=== PATIENT | female | born 1960 | race Caucasian/White ===

== ENCOUNTER → 2018-11-02 11:25 | Outpatient (CLI) | payer OTHER, SELFPAY ==
--- NOTE | 2018-11-02 09:15 | DI.MG.S_ITS ---
Patient Name: ALISA SCHERER date: 1960 Sex: F Attending Physician: Kaycee Indications: Date: 11/02/2018 11:43 At the request of: ESTHER REYES Procedure: MM screening mammo BI BILATERAL DIGITAL SCREENING MAMMOGRAM 3D/2D WITH CAD: 11/02/2018 CLINICAL: Routine screening. Family history of breast cancer. Comparison is made to exams dated: 09/10/2017 mammogram, 06/06/2016 mammogram, and 06/05/2015 mammogram - [facility]. The tissue of both breasts is extremely dense, which lowers the sensitivity of mammography. Current study was also evaluated with a Computer Aided Detection (CAD) system. No significant masses, calcifications, or other findings are seen in either breast. There has been no significant interval change. IMPRESSION: NEGATIVE There is no mammographic evidence of malignancy. A 1 year screening mammogram is recommended. This exam was interpreted at Station ID: [id number]. NOTE: For mammograms, a report in lay terms will be sent to the patient. Approximately 15% of breast malignancies will not be visualized mammographically. In the management of a palpable breast mass, a negative mammogram must not discourage biopsy of a clinically suspicious lesion. Electronically Signed By: Kong caceres/marc:11/02/2018 22:31:34 letter sent: Normal Exam ACR BI-RADS Category 1: Negative 3341F
== END ==
PROVIDERS: Family Provider Internal Medicine; PCP Internal Medicine; Visit Provider Specialist
DX: Z12.31 Encounter for screening mammogram for malignant neoplasm of breast (principal); Z80.3 Family history of malignant neoplasm of breast
CPT/HCPCS: 77063; 77067

== ENCOUNTER → 2019-05-06 16:30 | Outpatient (CLI) | payer OTHER, SELFPAY ==
[2019-05-06 17:14] LABS: Add Manual Diff / Slide Review NO; Basophils Absolute Auto 100 /uL (0-100); Basophils Percent Auto 1.3 % (0-2); Eosinophils Absolute Auto 100 /uL (0-450); Eosinophils Percent Auto 1.8 % (2-4); Hematocrit 39.7 % (36-46); Hemoglobin 13.5 g/dL (12.0-16.0); Lymphocytes Absolute Auto 1900 /uL (1100-4500); Lymphocytes Percent Auto 38.6 % (25-40); Mean Corpuscular Hemoglobin 30.3 PG (26-34); Mean Corpuscular Volume 89.3 fL (80-100); Monocytes Absolute Auto 500 /uL (0-900); Monocytes Percent Auto 9.3 % (3-14); Neutrophils Absolute Auto 2400 /uL (1500-7000); Platelet Count 272 X10^3/uL (150-400); Red Blood Cell Count 4.45 X10^6/uL (4.0-5.2); White Blood Cell Count 4.9 X10^3/uL (4.5-11.0)
[2019-05-06 18:22] LABS: Alanine Aminotransferase 29 IU/L (9-52); Albumin 4.4 g/dL (3.5-5.0); Albumin Globulin Ratio 1.7 (1.0-2.8); Alkaline Phosphatase 44 U/L (38-126); Aspartate Aminotransferase 34 IU/L (14-36); BUN Creatinine Ratio 22.5 (6-22); Bilirubin Total 0.5 mg/dL (0.2-1.3); Blood Urea Nitrogen 18 mg/dL (7-17); Calcium 10.4 mg/dL (8.4-10.2); Carbon Dioxide 29 mmol/L (22-32); Chloride 104 mmol/L (98-107); Estimated Glomerular Filt Rate > 60.0 mL/min (>60); Globulin 2.6 g/dL (1.7-4.1); Glucose 114 mg/dL (70-100); HEMOLYSIS < 15 (0-50); Potassium 4.6 mmol/L (3.4-5.1); Sodium 143 mmol/L (137-145)
== END ==
PROVIDERS: PCP Internal Medicine; Visit Provider Physician Assistant
DX: L57.0 Actinic keratosis (principal); A00-B99 Certain infectious and parasitic diseases; X32.XXXA Exposure to sunlight, initial encounter
CPT/HCPCS: 36415; 80053; 85025

== ENCOUNTER → 2019-07-06 13:56 | Outpatient (CLI) | payer OTHER, SELFPAY ==
[2019-07-06 15:53] LABS: Alanine Aminotransferase 23 IU/L (9-52); Albumin Globulin Ratio 1.6 (1.0-2.8); Alkaline Phosphatase 47 U/L (38-126); Aspartate Aminotransferase 37 IU/L (14-36); BUN Creatinine Ratio 25.7 (6-22); Bilirubin Total 0.5 mg/dL (0.2-1.3); Blood Urea Nitrogen 18 mg/dL (7-17); Calcium 9.8 mg/dL (8.4-10.2); Carbon Dioxide 29 mmol/L (22-32); Chloride 103 mmol/L (98-107); Estimated Glomerular Filt Rate > 60.0 mL/min (>60); Globulin 2.5 g/dL (1.7-4.1); Glucose 98 mg/dL (80-110); HEMOLYSIS < 15 (0-50); Sodium 140 mmol/L (137-145); Total Protein 6.5 g/dL (6.3-8.2)
== END ==
PROVIDERS: PCP Internal Medicine; Visit Provider Physician Assistant
DX: A00-B99 Certain infectious and parasitic diseases (principal)
CPT/HCPCS: 36415; 80053

== ENCOUNTER → 2019-11-25 16:53 | Outpatient (CLI) | payer OTHER, SELFPAY ==
--- NOTE | 2019-11-25 | DI.MG.S_ITS ---
BILATERAL DIGITAL SCREENING MAMMOGRAM 3D/2D WITH CAD: 11/25/2019 CLINICAL: Routine screening. Family history of breast cancer. Comparison is made to exams dated: 11/02/2018 mammogram, 09/10/2017 mammogram, and 09/16/2016 breast [facility]. The tissue of both breasts is heterogeneously dense. This may lower the sensitivity of mammography. Current study was also evaluated with a Computer Aided Detection (CAD) system. No significant masses, calcifications, or other findings are seen in either breast. There has been no significant interval change. IMPRESSION: NEGATIVE There is no mammographic evidence of malignancy. A 1 year screening mammogram is recommended. This exam was interpreted at Station ID: [id number]. NOTE: For mammograms, a report in lay terms will be sent to the patient. Approximately 15% of breast malignancies will not be visualized mammographically. In the management of a palpable breast mass, a negative mammogram must not discourage biopsy of a clinically suspicious lesion. Electronically Signed By: Min carranza/marc:11/25/2019 17:14:55 copy to: ESTHER REYES letter sent: Normal Exam ACR BI-RADS Category 1: Negative 3341F
== END ==
PROVIDERS: PCP Internal Medicine; Referring Provider Specialist; Visit Provider Internal Medicine
DX: Z12.31 Encounter for screening mammogram for malignant neoplasm of breast (principal); Z80.3 Family history of malignant neoplasm of breast
CPT/HCPCS: 77063; 77067

== ENCOUNTER → 2020-11-26 11:34 | Outpatient (CLI) | payer OTHER, SELFPAY ==
--- NOTE | 2020-11-26 | DI.MG.S_ITS ---
BILATERAL DIGITAL SCREENING MAMMOGRAM 3D/2D WITH CAD: 11/26/2020 CLINICAL: Routine screening. Family history of breast cancer. Comparison is made to exams dated: 11/25/2019 mammogram, 11/02/2018 mammogram, and 09/10/2017 mammogram - [facility]. The tissue of both breasts is heterogeneously dense. This may lower the sensitivity of mammography. Current study was also evaluated with a Computer Aided Detection (CAD) system. No significant masses, calcifications, or other findings are seen in either breast. There has been no significant interval change. IMPRESSION: NEGATIVE There is no mammographic evidence of malignancy. A 1 year screening mammogram is recommended. This exam was interpreted at Station ID: [id number]. NOTE: For mammograms, a report in lay terms will be sent to the patient. Approximately 15% of breast malignancies will not be visualized mammographically. In the management of a palpable breast mass, a negative mammogram must not discourage biopsy of a clinically suspicious lesion. Electronically Signed By: Vicente horvath/marc:11/26/2020 14:35:48 copy to: ESTHER REYES letter sent: Normal Exam ACR BI-RADS Category 1: Negative 3341F
== END ==
PROVIDERS: PCP Internal Medicine; Referring Provider Internal Medicine; Visit Provider Specialist
DX: Z12.31 Encounter for screening mammogram for malignant neoplasm of breast (principal); Z80.3 Family history of malignant neoplasm of breast
CPT/HCPCS: 77063; 77067

== ENCOUNTER → 2021-02-19 15:32 | Outpatient (CLI) | payer OTHER, SELFPAY | PROVIDERS: Referring Provider Nurse Practitioner; Visit Provider Nurse Practitioner | DX: L82.0 Inflamed seborrheic keratosis (principal); L53.8 Other specified erythematous conditions; L81.4 Other melanin hyperpigmentation; E80.1 Porphyria cutanea tarda; D22.5 Melanocytic nevi of trunk; L82.1 Other seborrheic keratosis; D18.01 Hemangioma of skin and subcutaneous tissue; Z71.89 Other specified counseling; W89.1XXA Exposure to tanning bed, initial encounter | CPT/HCPCS: 82542 ==

== ENCOUNTER → 2021-02-21 11:26 | Outpatient (CLI) | payer OTHER, SELFPAY | PROVIDERS: Referring Provider Nurse Practitioner; Visit Provider Nurse Practitioner | DX: E80.1 Porphyria cutanea tarda (principal) | CPT/HCPCS: 84120 ==

== ENCOUNTER → 2021-03-11 14:18 | Outpatient (CLI) | payer OTHER, SELFPAY ==
--- NOTE | 2021-03-11 14:19 | DI.RAD.S_ITS ---
PROCEDURE: XR DEXA AXIAL SKELETON INDICATIONS: Osteoporosis COMPARISON: None. FINDINGS: This blank DEXA report has been sent in error by the PACS system. The correct and complete report will be forthcoming in 1-2 days. Thank you for your patience and understanding. Dictated by: Jacquelyn Matos MD, PhD on 03/11/2021 at 17:40 Approved by: Jacquelyn Matos MD, PhD on 03/11/2021 at 17:40
== END ==
PROVIDERS: PCP Internal Medicine; Referring Provider Specialist; Visit Provider Specialist
DX: M81.0 Age-related osteoporosis without current pathological fracture (principal); Z78.0 Asymptomatic menopausal state; E07.9 Disorder of thyroid, unspecified; Z82.62 Family history of osteoporosis
CPT/HCPCS: 77080

== ENCOUNTER → 2021-04-23 11:16 | Outpatient (CLI) | payer OTHER, SELFPAY ==
[2021-04-23 11:55] LABS: COVID19 -Nasal RAPID Negative (Negative)
== END ==
PROVIDERS: PCP Internal Medicine; Visit Provider Specialist
DX: Z01.812 Encounter for preprocedural laboratory examination (principal); Z20.822 Contact with and (suspected) exposure to COVID-19
CPT/HCPCS: 87635

== ENCOUNTER 2021-04-23 11:59 | Day surgery (SDC) | payer OTHER, SELFPAY ==
[2021-04-19 12:54] VITALS: BMI 24.1
[2021-04-23] VITALS (11 sets, daily range): BP systolic 104–138; BP diastolic 49–88; PULSE 62–93; RESP 10–19; TEMP 36.4–37; O2SAT 96–100; BMI 24.1
[2021-04-23] MEDS: LACTATED RINGERS 1,000 ML 100 ML IV ×2 (13:08→16:39)
--- NOTE | 2021-04-23 13:22 | PM.PREOP ---
Pre-operative Note COVID-19 COVID-19 status: Negative Result date/Date tested (Pos, Neg/Pending): 04/23/21 Interval Note History & Physical reviewed/Exam performed by Physician: Yes Changes to H&P: No
[2021-04-23] MEDS: CEFAZOLIN 1 GM VIAL 2 GM IV (13:49)
[2021-04-23] MEDS: BUPIVACAINE 0.5% (PF) VIAL 30 ML INJ (13:50)
[2021-04-23] MEDS: EPINEPHrine 1 MG/ML 0.15 MG INJ (13:51)
--- NOTE | 2021-04-23 15:03 | PM.OP.1 ---
Operative Date/Time/Diagnoses Date of procedure: 04/23/21 Time of procedure: 15:03 Pre-op diagnosis: Symptomatic uterovaginal prolapse Post-op diagnosis: same Procedure & Clinicians Procedure: Anterior and posterior repair with sacrospinous ligament fixation Same procedure as scheduled: Yes Indications: Symptomatic uterovaginal prolapse Surgeon: Dalia Benoit Click Yes if Unassisted: Yes Anesthesia Type: General Operative Notes Findings: Second-degree degree cystocele, rectocele, uterine prolapse to 2 cm from the hymen, urethra well supported Closure Type: primary Specimen(s): none sent Applied: catheter (Key) and other (Vaginal packing) Estimated Blood Loss (mL): 30 Blood products transfused: none Procedure in detail: Patient was brought to the operating room where she was placed in yellowfin stirrups and prepped and draped in the usual sterile fashion. A check system was reviewed prior to the beginning of the case. Pulsatile stockings were in place and functional throughout the case. Warming was in place. 2 g of Ancef were in prior to beginning of the case. A Key catheter was placed. A dilute solution of 1% lidocaine with epinephrine was injected over this cystocele. An incision was made over the cystocele and the incision dissected laterally. Plicating sutures were made over the cystocele with 0 Vicryl suture followed by a layer of 2-0 Vicryl suture plicating stitches. The incision was closed with 2-0 Vicryl suture. Next a wedge shaped tissue was taken out of the posterior vaginal opening. The area over the rectocele was injected with a dilute solution of 1% lidocaine with epinephrine. An incision was made over the rectocele with the scalpel. The dissection was undertaken laterally. Prolene suture with the Capio passer was placed through the uterosacral ligament on the right side and sutured to the underside of the cervix as was a 2nd suture. 0 Vicryl suture was used to plicate over the rectocele. A finger was placed in the rectum to be sure there were no sutures placed through the rectal mucosa. The uterosacral sutures were tightened down and the vaginal incision was closed with 2-0 Vicryl suture. The perineal body was built up with interrupted 0 Vicryl sutures. The skin was closed with the 2-0 Vicryl suture. Vaginal packing was placed in the vagina and the Key left in place. Counts of instruments and sponges were correct. The patient went to recovery room in good condition. Complications: none Post-operative Condition: stable Disposition: Acute Care Plan for aftercare: Vaginal packing will be removed in a.m. she will go home after bladder trial
--- NOTE | 2021-04-23 15:18 | SUR.PHASEI ---
Stable PACU stay, Dr. Benoit briefly came to pt's bedside. Arousable, taking ice chips, catrachito pad free of juanis drainage.
--- NOTE | 2021-04-23 15:32 | SUR.PHASEI ---
Report to silvia García brought to room 211 via bed on room air.
--- NOTE | 2021-04-23 16:18 | SUR.PHASEI ---
Left with ALAYNA García in stable condition.
[2021-04-23] MEDS: KETOROLAC 30 MG/ML VIAL IV ×2 (16:39→21:23)
[2021-04-23] MEDS: DOCUSATE 250 MG CAPSULE PO (21:24)
--- NOTE | 2021-04-23 22:30 | PC.NURSE ---
On unit at 1530 from PACU. VSS. A&Ox3. Pain 4/10 in pelvic region and sternum. Given scheduled Ketorolac which provided relief to a 2/10 pain. Pain in sternum patient reports is from previous injury. Krista pad is cdi. Key draining clear, yellow urine. Call appropriately, call light within reach. Bed low.
[2021-04-23] MEDS: ACETAMINOPHEN 325 MG TABLET 650 MG PO (23:42)
[2021-04-24 00:05] VITALS: BP 110/66; PULSE 70; RESP 18; TEMP 36.6; O2SAT 95; O2SAT 96
--- NOTE | 2021-04-24 00:21 | PC.NURSE ---
Patient is alert and oriented. Breath sounds CTA with RA sat of 96%. HRR. Denies nausea. BT present and states she has passed some flatus since surgery. Indwelling catheter is patent; urine is clear yellow. Is able to move herself in bed. Has not yet been out of bed so gait not assessed; offered to assist her out of bed and go for walk in [place] but patient declines at this time. Having intermittent abdominal cramps and some sternal pain (reports she had an injury in September and sternal pain has been an intermittent issue) which she believes was exacerbated by positioning in surgery; medicated with Tylenol. Is also receiving scheduled Toradol. Wearing bilateral calf SCD's. Fall risk score is low. Understands MD will be removing packing in a.m. but uncertain if she will be discharged with catheter or not.
[2021-04-24] MEDS: LACTATED RINGERS 1,000 ML 100 ML IV (03:34)
[2021-04-24] MEDS: KETOROLAC 30 MG/ML VIAL IV ×2 (03:35→09:57)
[2021-04-24 03:56] VITALS: BP 117/78; PULSE 61; RESP 18; TEMP 36.7; O2SAT 97
[2021-04-24 06:05] LABS: Add Manual Diff / Slide Review NO; Basophils Absolute Auto 0 /uL (0-100); Basophils Percent Auto 0.4 % (0-2); Eosinophils Absolute Auto 0 /uL (0-450); Eosinophils Percent Auto 0.3 % (2-4); Hemoglobin 11.6 g/dL (12.0-16.0); Lymphocytes Absolute Auto 1300 /uL (1100-4500); Lymphocytes Percent Auto 14.1 % (25-40); Mean Corpuscular HGB Conc 33.2 % (30-36); Mean Corpuscular Volume 90.5 fL (80-100); Monocytes Absolute Auto 800 /uL (0-900); Monocytes Percent Auto 8.1 % (3-14); Neutrophils Absolute Auto 7300 /uL (1500-7000); Neutrophils Percent Auto 77.1 % (50-75); Platelet Count 189 X10^3/uL (150-400); Red Blood Cell Count 3.87 X10^6/uL (4.0-5.2); White Blood Cell Count 9.4 X10^3/uL (4.5-11.0)
--- NOTE | 2021-04-24 06:32 | PM.DS.1 ---
History of Present Illness History of Present Illness Date Patient Seen: 04/24/21 Time Patient Seen: 06:32 Chief complaint: *OPB* Narrative: Patient is status post anterior and posterior repair with sacrospinous ligament fixation on 04/23/2021. Discharge Providers Provider Discharge Date: 04/24/21 Primary care physician: Pepe Palencia MD Discharge provider: Dalia Benoit MD Summary Hospital Course Discharge Diagnosis: Partial uterovaginal prolapse status post anterior and posterior repair with sacrospinous ligament fixation Hospital Course: Patient denies nausea. Patient states her pain is under control. Patient is urinating and ambulating well. Patient had no postvoid residual. Status at Discharge Cognitive/behavioral status at discharge: oriented Functional status at discharge: independent ambulation Overall status at discharge: patient is progressing back to baseline Time Spent with Patient Time spent: Less than 30 minutes Exam Vital Signs (past 8 hours): - 04/24/21 00:05 04/24/21 03:56 Temperature 97.9 F 98.0 F Pulse Rate 70 61 Respiratory Rate 18 18 Blood Pressure 110/66 117/78 Pulse Oximetry 95 97 Oxygen Delivery Method Room Air Oxygen Flow Rate 0 Narrative Exam Narrative: Abdomen is soft, nontender. Vaginal packing was removed and had minimal blood. Extremities without edema and nontender Objective Labs Result Diagrams: 04/24/21 05:24 Labs: Laboratory Results - last 24 hr 04/24/21 05:24 WBC 9.4 RBC 3.87 L Hgb 11.6 L Hct 35.0 L MCV 90.5 MCH 30.0 MCHC 33.2 RDW 13.0 Plt Count 189 Neut % (Auto) 77.1 H Lymph % (Auto) 14.1 L Monona % (Auto) 8.1 Eos % (Auto) 0.3 L Baso % (Auto) 0.4 Neut # (Auto) 7300 H Lymph # (Auto) 1300 Monona # (Auto) 800 Eos # (Auto) 0 Baso # (Auto) 0 PFSH Family History (Updated 07/17/15 @ 00:00 by Conversion Provider) Father Cancer Grandfather Heart disease Grandmother Stroke Mother Cancer Social History household members: spouse Smoking Status: Never smoker alcohol intake: current Discharge Assessment & Plan Assessment and Plan Assessment: Patient is doing well postoperative anterior and posterior repair with sacrospinous ligament fixation and passed her bladder trial. Plan of Treatment: Home to be followed up in 2 weeks. Routine precautions reviewed with the patient. Discharge Plan Discharge Plan Patient Disposition: Home Discharge orders & Medications Discharge Orders: Discharge (Order); Ordered 04/24/21 Ordered By: Dalia Benoit Prescriptions: New oxycodone 5 mg Tablet 5 mg PO Q4HR PRN (Reason: Pain, Moderate (4-6)) Qty: 20 RF: 0 Continued glucosamine sulfate 500 mg Capsule 500 mg PO DAILY Qty: 0 RF: 0 multivitamin Capsule 1 cap PO DAILY Qty: 0 RF: 0 vitamin B complex Capsule 1 cap PO DAILY Qty: 0 RF: 0 zinc 10 mg Tablet 30 mg PO DAILY Qty: 0 RF: 0 calcium citrate 200 mg (950 mg) Tablet 200 mg PO DAILY Qty: 0 RF: 0 omega-3 fatty acids Capsule 1,000 mg PO DAILY Qty: 0 RF: 0 cholecalciferol (vitamin D3) [Vitamin D3] 50 mcg (2,000 unit) Capsule 50 mcg PO DAILY Qty: 0 RF: 0 flaxseed 1,000 mg Capsule 1,000 mg PO DAILY Qty: 0 RF: 0 folic acid 400 mcg tablet 1 mg PO QDAY Qty: 0 RF: 0 estradiol [Vagifem] 10 mcg tablet 10 mcg Vaginal .COMPLEX Qty: 30 RF: 4 Follow up/Referrals: Dalia Benoit MD [Physician] - 2 Weeks Pepe Palencia MD [Primary Care Provider] - Diet/Activity/Treatments Diet: Regular Activity: Nothing in vagina or lifting over 20 lb for 6 weeks Skin/Wound/Dressing Care Report to your healthcare provider any signs of infection, such as:: chills, fever and increased pain Visit Report/Discharge Packet Stand Alone Forms: Surgery Discharge Discharge Data Primary Care Provider: Pepe Palencia V Attending Provider: Dalia Benoit
[2021-04-24 08:15] VITALS: BP 122/75; PULSE 57; RESP 18; TEMP 36.7; O2SAT 100
--- NOTE | 2021-04-24 08:27 | PC.NURSE ---
Addendum entered by Gaye Summers R.N. 04/24/21 11:45: pt packed up, changed into personal clothing. PIV removed by nurseMimi. DC education provided with no questions remaining. PRODUCTION MACHINE TENDER transferred pt to car via WCW. Original Note: AM Shift report. pt AO and receptive to care. pt reporting mild sternum pain but associates it to an old injury. Also reporting some pressure to bladder which she states she thinks she can urinate. pt infusing LR to left wrist at 100/hr. pt up SBA with walker to BR. voided 400 and post-residual void bladder scanner showed ~1mL. I called and spoke to doctor Foist who stated pt is ready and able for discharge. pt sitting up in bed eating breakfast. in room ready to assist with home transfer.
[2021-04-24 08:32] VITALS: O2SAT 97
[2021-04-24] MEDS: DOCUSATE 250 MG CAPSULE PO (09:56)
== END 2021-04-24 11:40 | disposition home or self-care (01) ==
LOC: OR 11:59 → AC 12:01
PROVIDERS: PCP Internal Medicine; Referring Provider Specialist; Visit Provider Specialist
PROC: (CPT 57282; principal; 2021-04-23 13:30)
DX: N81.2 Incomplete uterovaginal prolapse (principal); Z20.822 Contact with and (suspected) exposure to COVID-19
CPT/HCPCS: 57282; 57260; 36415; 85025; 87635; J0171; J0690; J1100; J1885; J2250; J2405; J2704; J3010

== ENCOUNTER → 2021-05-07 08:58 | Outpatient (CLI) | payer OTHER, SELFPAY ==
[2021-04-23 15:58] VITALS: BMI 24.1
[2021-05-07 10:22] LABS: Add Manual Diff / Slide Review NO; Basophils Absolute Auto 100 /uL (0-100); Basophils Percent Auto 1.8 % (0-2); Eosinophils Absolute Auto 200 /uL (0-450); Eosinophils Percent Auto 3.7 % (2-4); Hematocrit 39.3 % (36-46); Lymphocytes Absolute Auto 1400 /uL (1100-4500); Mean Corpuscular HGB Conc 33.1 % (30-36); Mean Corpuscular Volume 90.7 fL (80-100); Monocytes Absolute Auto 400 /uL (0-900); Monocytes Percent Auto 7.9 % (3-14); Neutrophils Absolute Auto 2700 /uL (1500-7000); Neutrophils Percent Auto 57.6 % (50-75); Platelet Count 261 X10^3/uL (150-400); Red Blood Cell Count 4.34 X10^6/uL (4.0-5.2); Red Cell Distribution Width 13.2 % (11.6-14.8); White Blood Cell Count 4.8 X10^3/uL (4.5-11.0)
[2021-05-07 10:25] LABS: Alanine Aminotransferase 19 IU/L (<35); Albumin 4.1 g/dL (3.5-5.0); Albumin Globulin Ratio 1.4 (1.0-2.8); Alkaline Phosphatase 54 U/L (38-126); Aspartate Aminotransferase 34 IU/L (14-36); BUN Creatinine Ratio 18.9 (6-22); Bilirubin Total 0.6 mg/dL (0.2-1.3); Blood Urea Nitrogen 14 mg/dL (7-17); Calcium 9.6 mg/dL (8.4-10.2); Carbon Dioxide 28 mmol/L (22-32); Chloride 107 mmol/L (98-107); Cholesterol 192 mg/dL (140-199); Estimated Glomerular Filt Rate > 60.0 mL/min (>60); Globulin 2.9 g/dL (1.7-4.1); Glucose 84 mg/dL (80-110); HDL Cholesterol 65 mg/dL (40-60); HEMOLYSIS < 15 (0-50); LDL Cholesterol Calculated 115 mg/dL (<100); Potassium 4.4 mmol/L (3.4-5.1); Sodium 141 mmol/L (137-145); Triglycerides 61 mg/dL (35-150)
[2021-05-07 10:58] LABS: TSH w/ Reflex to FT4 1.04 uIU/mL (0.47-4.68)
[2021-05-09 11:59] LABS: Alpha-1 Globulin, Ur 3.4 % (.); Beta Globulin, Ur 17.9 % (.); Gamma Globulin, Ur 10.3 % (.); M-Spike % 3.8 % (Not Observed); Urine Total Protein 10.4 mg/dL (Not Estab.)
[2021-05-09 12:01] LABS: Immunoglobulin A, Serum 140 mg/dL (87-352); Immunoglobulin G,Serum 902 mg/dL (586-1602); Immunoglobulin M, Serum 71 mg/dL (26-217)
[2021-05-09 12:36] LABS: Albumin 3.7 g/dL (2.9-4.4); Alpha-1-Globulin 0.2 g/dL (0.0-0.4); Alpha-2-Globulin 0.7 g/dL (0.4-1.0); Gamma Globulin 0.9 g/dL (0.4-1.8); Globulin Total 2.8 g/dL (2.2-3.9); Protein, Total 6.5 g/dL (6.0-8.5)
== END ==
PROVIDERS: PCP Internal Medicine; Referring Provider Internal Medicine; Visit Provider Internal Medicine
DX: D47.2 Monoclonal gammopathy (principal); E78.2 Mixed hyperlipidemia; M81.0 Age-related osteoporosis without current pathological fracture
CPT/HCPCS: 36415; 80053; 80061; 82784; 84155; 84156; 84165; 84166; 84443; 85025; 86334; 86335

== ENCOUNTER → 2021-06-03 11:42 | Outpatient (CLI) | payer OTHER, SELFPAY ==
[2021-04-23 15:58] VITALS: BMI 24.1
== END ==
PROVIDERS: PCP Internal Medicine; Visit Provider Obstetrics & Gynecology
DX: R39.9 Unspecified symptoms and signs involving the genitourinary system (principal)
CPT/HCPCS: 87077; 87086; 87186

== ENCOUNTER → 2022-03-03 11:22 | Outpatient (CLI) | payer OTHER, SELFPAY ==
[2021-04-23 15:58] VITALS: BMI 24.1
--- NOTE | 2022-03-03 | DI.MG.S_ITS ---
BILATERAL DIGITAL SCREENING MAMMOGRAM 3D/2D WITH CAD: 03/03/2022 CLINICAL: Routine screening. Family history of breast cancer. Comparison is made to exams dated: 11/26/2020 mammogram, 11/25/2019 mammogram, and 11/02/2018 mammogram - [facility]. The tissue of both breasts is heterogeneously dense. This may lower the sensitivity of mammography. Current study was also evaluated with a Computer Aided Detection (CAD) system. No significant masses, calcifications, or other findings are seen in either breast. There has been no significant interval change. IMPRESSION: NEGATIVE There is no mammographic evidence of malignancy. A 1 year screening mammogram is recommended. This exam was interpreted at Station ID: [id number]. NOTE: For mammograms, a report in lay terms will be sent to the patient. Approximately 15% of breast malignancies will not be visualized mammographically. In the management of a palpable breast mass, a negative mammogram must not discourage biopsy of a clinically suspicious lesion. Electronically Signed By: Marco Rangel acr/penrad:03/03/2022 12:43:21 copy to: ESTHER REYES letter sent: Normal Exam ACR BI-RADS Category 1: Negative 3341F
== END ==
PROVIDERS: PCP Internal Medicine; Referring Provider Internal Medicine; Visit Provider Internal Medicine
DX: Z12.31 Encounter for screening mammogram for malignant neoplasm of breast (principal); Z80.3 Family history of malignant neoplasm of breast
CPT/HCPCS: 77063; 77067

== ENCOUNTER → 2022-04-01 09:24 | Outpatient (CLI) | payer OTHER, SELFPAY ==
[2021-04-23 15:58] VITALS: BMI 24.1
--- NOTE | 2022-04-01 09:25 | DI.US.S_ITS ---
LIMITED ULTRASOUND OF RIGHT BREAST: 04/01/2022 CLINICAL: Palpable right breast lump. Comparison is made to exams dated: 03/03/2022 mammogram, 11/26/2020 mammogram, and 11/25/2019 mammogram - [facility]. Real-time ultrasound of the right breast 3-4 o'clock region was performed. Thompson scale images of the real-time examination were reviewed. No mass is identifed in the patient-indicated palpable area of concern in the right breast at the 3-4 o'clock position. Underlying ribs may or may not account for the palpable abnormality. IMPRESSION: NEGATIVE No breast mass is identifed in the patient-indicated palpable area of concern. Recommend clinical follow up. There is no sonographic evidence of malignancy. Return to annual mammogram screening schedule is recommended. Future imaging is recommended as follows: 03/04/2023 screening mammogram. This exam was interpreted at Station ID: [id number]. Electronically Signed By: Vicente horvath/marc:04/01/2022 11:07:05 copy to: ESTHER REYES letter sent: Clinical Evaluation Ultrasound BI-RADS: 1 Negative
== END ==
PROVIDERS: PCP Internal Medicine; Referring Provider Specialist; Visit Provider Specialist
DX: N63.10 Unspecified lump in the right breast, unspecified quadrant (principal); Z80.3 Family history of malignant neoplasm of breast
CPT/HCPCS: 76642

== ENCOUNTER → 2022-09-22 08:48 | Outpatient (CLI) | payer OTHER, SELFPAY ==
[2021-04-23 15:58] VITALS: BMI 24.1
[2022-09-22 09:59] LABS: Hematocrit 40.1 % (36-46); Hemoglobin 13.1 g/dL (12.0-16.0); Mean Corpuscular HGB Conc 32.8 % (30-36); Mean Corpuscular Hemoglobin 29.6 PG (26-34); Mean Corpuscular Volume 90.2 fL (80-100); Platelet Count 276 X10^3/uL (150-400); Red Blood Cell Count 4.44 X10^6/uL (4.0-5.2); Red Cell Distribution Width 12.7 % (11.6-14.8); White Blood Cell Count 3.1 X10^3/uL (4.5-11.0)
[2022-09-22 10:11] LABS: Alanine Aminotransferase 24 IU/L (<35); Albumin 4.1 g/dL (3.5-5.0); Albumin Globulin Ratio 1.5 (1.0-2.8); Alkaline Phosphatase 52 U/L (38-126); Aspartate Aminotransferase 34 IU/L (14-36); BUN Creatinine Ratio 18.9 (6-22); Bilirubin Total 0.6 mg/dL (0.2-1.3); Blood Urea Nitrogen 14 mg/dL (7-17); Calcium 9.3 mg/dL (8.4-10.2); Carbon Dioxide 29 mmol/L (22-32); Chloride 104 mmol/L (98-107); Cholesterol 189 mg/dL (140-199); Estimated Glomerular Filt Rate > 60 mL/min (>60); Globulin 2.8 g/dL (1.7-4.1); Glucose 85 mg/dL (80-110); HDL Cholesterol 77 mg/dL (40-60); HEMOLYSIS < 15 (0-50); LDL Cholesterol Calculated 102 mg/dL (<100); Sodium 140 mmol/L (137-145); Total Protein 6.9 g/dL (6.3-8.2); Triglycerides 51 mg/dL (35-150)
[2022-09-22 10:42] LABS: TSH w/ Reflex to FT4 1.56 uIU/mL (0.47-4.68)
[2022-09-22 11:02] LABS: Vitamin B12 886 pg/mL (239-931)
[2022-09-25 14:56] LABS: Albumin 3.6 g/dL (2.9-4.4); Alpha-1-Globulin 0.2 g/dL (0.0-0.4); Alpha-2-Globulin 0.6 g/dL (0.4-1.0); Globulin Total 2.7 g/dL (2.2-3.9); Protein, Total 6.3 g/dL (6.0-8.5)
== END ==
PROVIDERS: PCP Internal Medicine; Referring Provider Internal Medicine; Visit Provider Internal Medicine
DX: D47.2 Monoclonal gammopathy (principal); E78.2 Mixed hyperlipidemia; M81.0 Age-related osteoporosis without current pathological fracture; E53.8 Deficiency of other specified B group vitamins
CPT/HCPCS: 36415; 80053; 80061; 82607; 84155; 84165; 84443; 85027; 86335

== ENCOUNTER → 2022-10-24 13:36 | Outpatient (CLI) | payer OTHER, SELFPAY ==
[2021-04-23 15:58] VITALS: BMI 24.1
[2022-10-24 15:40] LABS: Alanine Aminotransferase 21 IU/L (<35); Albumin 3.9 g/dL (3.5-5.0); Albumin Globulin Ratio 1.4 (1.0-2.8); Alkaline Phosphatase 53 U/L (38-126); Aspartate Aminotransferase 33 IU/L (14-36); BUN Creatinine Ratio 21.3 (6-22); Bilirubin Total 0.3 mg/dL (0.2-1.3); Blood Urea Nitrogen 16 mg/dL (7-17); Calcium 9.1 mg/dL (8.4-10.2); Carbon Dioxide 29 mmol/L (22-32); Chloride 104 mmol/L (98-107); Estimated Glomerular Filt Rate > 60 mL/min (>60); Globulin 2.7 g/dL (1.7-4.1); Glucose 121 mg/dL (80-110); HEMOLYSIS < 15 (0-50); Potassium 4.1 mmol/L (3.4-5.1); Sodium 141 mmol/L (137-145); Total Protein 6.6 g/dL (6.3-8.2)
== END ==
PROVIDERS: PCP Internal Medicine; Referring Provider Internal Medicine; Visit Provider Internal Medicine
DX: M81.0 Age-related osteoporosis without current pathological fracture (principal)
CPT/HCPCS: 36415; 80053

== ENCOUNTER → 2023-04-08 11:47 | Outpatient (CLI) | payer OTHER, SELFPAY ==
[2021-04-23 15:58] VITALS: BMI 24.1
--- NOTE | 2023-04-08 | DI.MG.S_ITS ---
BILATERAL DIGITAL SCREENING MAMMOGRAM 3D/2D WITH CAD: 04/08/2023 CLINICAL: Routine screening. Comparison is made to exams dated: 03/03/2022 mammogram, 11/26/2020 mammogram, and 11/25/2019 mammogram - [facility]. Both breasts are heterogeneously dense, which may obscure small masses (category c / 51-75% glandular tissue). Current study was also evaluated with a Computer Aided Detection (CAD) system. No significant masses, calcifications, or other findings are seen in either breast. There has been no significant interval change. IMPRESSION: NEGATIVE There is no mammographic evidence of malignancy. A 1 year screening mammogram is recommended. Based on Tyrer-Cuzick model (a risk assessment model), the patient's lifetime risk is 21.4% and her 10 year risk is 9.9%. If a patient has an elevated risk, a more comprehensive evaluation should be considered and/or a referral to a genetic counselor. The [place] [employer], [place] [employer], and NCCN Guidelines advise the consideration of Breast MRI as an adjunct to screening mammography in patients whose Lifetime risk to develop breast cancer is 20% or higher. This exam was interpreted at Station ID: [id number]. NOTE: For mammograms, a report in lay terms will be sent to the patient. Approximately 15% of breast malignancies will not be visualized mammographically. In the management of a palpable breast mass, a negative mammogram must not discourage biopsy of a clinically suspicious lesion. Electronically Signed By: Vicente horvath/marc:04/08/2023 14:52:20 copy to: ESTHER REYES letter sent: Normal Exam ACR BI-RADS Category 1: Negative 3341F
== END ==
PROVIDERS: PCP Internal Medicine; Referring Provider Internal Medicine; Visit Provider Internal Medicine
DX: Z12.31 Encounter for screening mammogram for malignant neoplasm of breast (principal)
CPT/HCPCS: 77063; 77067

== ENCOUNTER → 2023-08-13 13:46 | Outpatient (CLI) | payer OTHER, SELFPAY ==
[2021-04-23 15:58] VITALS: BMI 24.1
== END ==
PROVIDERS: PCP Internal Medicine; Visit Provider Nurse Practitioner Family
DX: R30.0 Dysuria (principal)
CPT/HCPCS: 87077; 87086; 87186

== ENCOUNTER 2023-10-27 09:10 | Emergency (ER) | payer OTHER, SELFPAY ==
[2021-04-23 15:58] VITALS: BMI 24.1
[2023-10-27] VITALS (10 sets, daily range): BP systolic 113–161; BP diastolic 62–75; PULSE 69–84; RESP 18; TEMP 36.7–37.1; O2SAT 96–100; BMI 23.9
--- NOTE | 2023-10-27 09:23 | DI.RAD.S_ITS ---
PROCEDURE: XR CHEST 1V INDICATIONS: 2 wk chest congestion and cough TECHNIQUE: One view of the chest was acquired. COMPARISON: None. FINDINGS: Surgical changes and devices: Medial right upper chest/lower neck clips. Lungs and pleura: Lungs are clear. No pleural effusions or pneumothorax. Mediastinum: Mediastinal contours appear normal. Heart size is normal. Bones and chest wall: No suspicious bony lesions. Overlying soft tissues appear unremarkable. IMPRESSION: No acute cardiopulmonary abnormality is seen. Dictated by: Ronak Baron M.D. on 10/27/2023 at 9:40 Approved by: Ronak Baron M.D. on 10/27/2023 at 9:41
[2023-10-27 10:25] LABS: Adenovirus Not Detected (Not Detect); B. parapertussis Not Detected (Not Detecte); Bordetella pertussis Not Detected (Not Detect); Chlamydophila pneumoniae Not Detected (Not Detect); Coronavirus 229E Not Detected (Not Detect); Coronavirus HKU1 Not Detected (Not Detect); Coronavirus NL 63 Not Detected (Not Detect); Coronavirus OC43 Not Detected (Not Detect); Human Metapneumovirus Not Detected (Not Detect); Human Rhinovirus/Enterovirus Not Detected (Not Detect); Influenza A(No subj detected) Detected (Not Detect); Influenza B Not Detected (Not Detect); Mycoplasma pneumoniae Not Detected (Not Detect); Parainfluenza Virus 1 Not Detected (Not Detect); Parainfluenza Virus 2 Not Detected (Not Detect); Parainfluenza Virus 3 Not Detected (Not Detect); Parainfluenza Virus 4 Not Detected (Not Detect); Respiratory Syncytial Virus Not Detected (Not Detect); SARS- CoV-2 Not Detected (Not Detecte)
--- NOTE | 2023-10-27 10:55 | ED.URI ---
HPI - URI/Sore Throat General Chief Complaint: Upper Respiratory Symptoms Stated Complaint: Cough for 2 weeks Time Seen by Provider: 10/27/23 10:45 Source: patient Mode of arrival: Ambulatory History of Present Illness HPI Narrative: Patient is a 63-year-old healthy female who presents today with 2 weeks of ongoing cough. She says she has had a fever but she chills. She now is really developed some epigastric pain. It hurts every time she moves or coughs or takes a deep breath. It is very reproducible. She has been traveling she went to [place] for [place] they flew on an airplane. She reports that she has not short of breath really all except for when she takes a deep breath and has pain. He has had upper respiratory symptoms and then the pain started. She actually feels like she is improving and doing better, but is here due to pain. Related Data Home Medications Medication Instructions Recorded Confirmed calcium citrate 200 mg (950 mg) 200 mg PO DAILY ##0 04/29/11 10/09/23 tablet cholecalciferol (vitamin D3) 50 50 mcg PO DAILY ##0 04/29/11 10/09/23 mcg (2,000 unit) capsule (Vitamin D3) glucosamine sulfate 500 mg capsule 500 mg PO DAILY ##0 04/29/11 10/09/23 multivitamin 1 cap PO DAILY ##0 04/29/11 10/09/23 omega-3 fatty acids 1,000 mg PO DAILY ##0 04/29/11 10/09/23 zinc 10 mg tablet 30 mg PO DAILY ##0 04/29/11 10/09/23 zoledronic acid 5 mg/100 mL in 1 ea IV ONCE 09/22/22 10/09/23 mannitol 5 %-water intravenous piggybck (Reclast) Previous Rx's Medication Instructions Recorded estradiol 10 mcg vaginal tablet 10 mcg vaginal .COMPLEX Vaginal 09/22/22 (Vagifem) atrophy #24 tabs folic acid 1 mg tablet 1 mg PO DAILY #90 tabs 04/17/23 phenazopyridine 200 mg tablet 200 mg PO TID 6 doses #6 tabs 08/13/23 (Pyridium) mefloquine 250 mg tablet See Rx Instructions PO .COMPLEX 10/09/23 #16 tabs hydrocodone 5 mg-acetaminophen 325 1 tab PO Q6H PRN pain #10 tabs 10/27/23 mg tablet Allergies Allergy/AdvReac Type Severity Reaction Status Date / Time No Known Drug Allergies Allergy Verified 10/27/23 09:20 Patient History Medical History PCT (porphyria cutanea tarda) History of colonic polyps Primary osteoarthritis involving multiple joints Polyneuropathy, unspecified MGUS (monoclonal gammopathy of unknown significance) Age-related osteoporosis without current pathological fracture Mixed hyperlipidemia Surgical History H/O vaginal surgery (~04/23/21) Family History Father Cancer Grandfather Heart disease Grandmother Stroke Mother Cancer Social History details: , one son and one daughter household members: spouse Smoking Status: Never smoker alcohol intake: current Smoking Status: Never smoker alcohol intake frequency: 0-2 drinks per day Substance Use Type: does not use Exam Initial Vital Signs Initial Vital Signs: Vital Signs Pulse Oximetry 96 10/27/23 09:13 GENERAL: Alert 63-year-old female no acute distress HEENT: Head atraumatic,EOMI, pupils reactive, CARDIOVASCULAR: Regular rate and rhythm without murmurs, rubs or gallops. RESPIRATORY: Breath sounds equal bilaterally, no wheezes rales or rhonchi. ABDOMEN: Soft, nontender. Normoactive bowel sounds all 4 quadrants. No guarding or rebound. Reproducible epigastric pain no guarding no rebound no right upper quadrant pain EXTREMITIES: Normal range of motion, no clubbing or edema. Neurovascularly intact NEUROLOGICAL: Alert and oriented x4. SKIN: Warm, dry, no laceration, no petechiae, no rashes or lesions. Course Orders Ordered: ED Orders 10/27/23 09:20 Respiratory Panel (Film Array) Stat 10/27/23 09:23 XR chest 1V Stat 10/27/23 10:48 Urine Culture Stat Urine Microscopic Stat Vital Signs Vital signs: Vital Signs - 8 hr 10/27/23 09:13 10/27/23 09:14 10/27/23 09:14 Temperature Pulse Rate 81 Respiratory Rate Blood Pressure 161/75 H Pulse Oximetry 96 97 Oxygen Delivery Method 10/27/23 09:15 10/27/23 09:30 10/27/23 09:33 Temperature 98.0 F Pulse Rate 83 84 Respiratory Rate 18 Blood Pressure 161/75 H 132/64 Pulse Oximetry 98 100 Oxygen Delivery Method Room Air 10/27/23 09:33 10/27/23 10:00 10/27/23 10:00 Temperature Pulse Rate 78 69 Respiratory Rate Blood Pressure 113/62 Pulse Oximetry 100 99 Oxygen Delivery Method 10/27/23 10:30 10/27/23 10:30 10/27/23 10:47 Temperature Pulse Rate 81 Respiratory Rate Blood Pressure 135/75 114/66 Pulse Oximetry 98 Oxygen Delivery Method 10/27/23 10:47 10/27/23 11:00 10/27/23 11:00 Temperature Pulse Rate 70 80 Respiratory Rate Blood Pressure 124/72 Pulse Oximetry 99 100 Oxygen Delivery Method 10/27/23 11:32 Temperature 98.7 F Pulse Rate Respiratory Rate Blood Pressure Pulse Oximetry Oxygen Delivery Method MDM - URI/Sore Throat Lab Data Labs: Lab Results 10/27/23 10/27/23 Range/Units 09:20 10:48 Urine RBC None seen (0-5/HPF) Urine WBC 1-5/hpf (0-5/HPF) Ur Squamous Epith Cells 0-1 /hpf (0-5/HPF) Urine Bacteria Few (2-10) H (None) Ur Culture Indicated? Specimen cultured Chlamy pneumoniae PCR Not detected (Not Detect) Adenovirus (PCR) Not detected (Not Detect) B.parapertussis DNA PCR Not detected (Not Detecte) Coronavirus OC43 (PCR) Not detected (Not Detect) Coronavirus HKU1 (PCR) Not detected (Not Detect) Coronavirus 229E (PCR) Not detected (Not Detect) SARS-CoV-2 (PCR) Not detected (Not Detecte) Coronavirus NL63 (PCR) Not detected (Not Detect) Human Metapneumovir PCR Not detected (Not Detect) Influenza A (PCR) Detected (Not Detect) Influenza Type B (PCR) Not detected (Not Detect) M. pneumoniae (PCR) Not detected (Not Detect) Parainfluenza 1 (PCR) Not detected (Not Detect) Parainfluenza 2 (PCR) Not detected (Not Detect) Parainfluenza 3 (PCR) Not detected (Not Detect) Parainfluenza 4 (PCR) Not detected (Not Detect) RSV (PCR) Not detected (Not Detect) Entero/Rhino (PCR) Not detected (Not Detect) Urine Dip Bedside Urine Glucose Negative Bedside Urine Bilirubin - Negative Bedside Urine Ketone - Negative Urine Specific Colbert 1.000 Bedside Urine Occult Blood - Negative Bedside Urine pH 6.5 Bedside Urine Protein - Negative Bedside Urine Urobilinogen - Negative Bedside Urine Nitrite - Negative Bedside Urine Leukocytes + 70 Esterase Imaging Data Chest x-ray: Radiologist's Impression: PROCEDURE: XR CHEST 1V INDICATIONS: 2 wk chest congestion and cough TECHNIQUE: One view of the chest was acquired. COMPARISON: None. FINDINGS: Surgical changes and devices: Medial right upper chest/lower neck clips. Lungs and pleura: Lungs are clear. No pleural effusions or pneumothorax. Mediastinum: Mediastinal contours appear normal. Heart size is normal. Bones and chest wall: No suspicious bony lesions. Overlying soft tissues appear unremarkable. IMPRESSION: No acute cardiopulmonary abnormality is seen. Dictated by: Ronak Baron M.D. on 10/27/2023 at 9:40 MDM Narrative Medical decision making narrative: Patient 63-year-old healthy female reports with epigastric pain worse with palpation movement and coughing. She has been sick for about 2 weeks actually feeling a little bit better. She is positive for influenza A her x-ray is negative for pneumonia. She is eating and drinking she is afebrile. I think pain is definitely secondary to coughing. She has no wheezing rales or rhonchi. She does not have any significant muscle swelling or real body aches. I do not suspect cholelithiasis or cholecystitis I do not suspect rhabdomyolysis. She appears well. I really do think pain is from coughing. She has in no respiratory distress. She recently traveled considered pulmonary embolism but not hypoxic or tachycardic. I think unlikely. Discharge Plan Departure Patient Disposition: Home Clinical Impression: Influenza A Instructions: DI for Influenza -- Adult Activity Restrictions/Additional Instructions: *You have been diagnosed with influenza a *What to do: At this time continue hydration. The your x-rays negative for pneumonia. I think pain is related to coughing. *Continue to take medications as directed [place] 1 tablet every 6 hours if needed for severe pain *Follow up with your primary care provider in 2-3 days or call [phone] *Return to ER if you should have increasing pain shortness of breath body aches or any new, worsening or concerning symptoms CONTROLLED SUBSTANCE DISCHARGE (Narcotoic/benzodiazepine/Flexeril/Phenergan) 1. You have been prescribed narcotic medications, it does have acetaminophen/Tylenol/paracetamol in it, DO NOT TAKE MORE THAN 4,00mg in 24 hours of Tylenol. TRAMADOL DOES NOT CONTAIN TYLENOL 2. Please understand that we cannot provide further refills of narcotics, benzodiazepines or controlled substances through the ED and her pain management will need to be through your provider. 3. While on these medications you cannot drive or operate heavy machinery. 4. You cannot sign legal documents or perform any duties such as this. 5. As long as you're taking opiate pain medications he should also be taking a stool softener such as Colace, Dulcolax, MiraLAX or prune juice, to help avoid constipation. Prescriptions: New hydrocodone-acetaminophen 5-325 mg tablet 1 tab PO Q6H PRN (Reason: pain) Qty: 10 0RF No Action phenazopyridine [Pyridium] 200 mg tablet 200 mg PO TID 0 Days Qty: 6 0RF glucosamine sulfate 500 mg Capsule 500 mg PO DAILY Qty: 0 multivitamin Capsule 1 cap PO DAILY Qty: 0 zinc 10 mg Tablet 30 mg PO DAILY Qty: 0 calcium citrate 200 mg (950 mg) Tablet 200 mg PO DAILY Qty: 0 omega-3 fatty acids Capsule 1,000 mg PO DAILY Qty: 0 cholecalciferol (vitamin D3) [Vitamin D3] 50 mcg (2,000 unit) Capsule 50 mcg PO DAILY Qty: 0 folic acid 1 mg tablet 1 mg PO DAILY Qty: 90 3RF zoledronic [id number] [Reclast] 5 mg/100 mL piggyback 1 ea IV ONCE Rx Instructions: Once yearly estradiol [Vagifem] 10 mcg tablet 10 mcg Vaginal .COMPLEX Qty: 24 3RF Rx Instructions: Placed in vagina twice a week mefloquine 250 mg tablet See Rx Instructions PO .COMPLEX Qty: 16 0RF Rx Instructions: take 250mg same day each week x3wk before exposure, during time in area, and x4wk after leaving PO Referrals: Pepe Palencia MD [Primary Care Provider] - Stand Alone Forms: Patient Portal/API
[2023-10-27 11:01] LABS: Bacteria Urine Few (2-10); Culture Indicated Urine Specimen Cultured; RBC Urine None Seen (0-5/HPF); Squamous Epithelial Cell Urine 0-1 /HPF (0-5/HPF); WBC Urine 1-5/HPF (0-5/HPF)
== END 2023-10-27 11:32 | disposition home or self-care (01) ==
PROVIDERS: Emergency Provider Emergency Medicine; PCP Internal Medicine
DX: J10.1 Influenza due to other identified influenza virus with other respiratory manifestations (principal)
CPT/HCPCS: 71045; 81003; 81015; 87086; 87633; 99282; 99284

== ENCOUNTER 2023-10-31 12:53 | Emergency (ER) | payer OTHER, SELFPAY ==
[2021-04-23 15:58] VITALS: BMI 24.1
[2023-10-31 13:03] VITALS: BP 150/74; PULSE 72; RESP 16; TEMP 36.8; O2SAT 99; BMI 23.9
--- NOTE | 2023-10-31 13:29 | ED_ITS ---
HPI - Recheck/Abnormal Lab/Rx General Chief Complaint: Recheck/Abnormal Lab/Rx Stated Complaint: abd bruise from coughing/sent by [facility] Time Seen by Provider: 10/31/23 13:17 Source: patient Mode of arrival: Ambulatory History of Present Illness HPI narrative: 63-year-old female. Was seen here in the emergency department a couple days ago and diagnosed with influenza a. She states she is still continuing to have a very strong cough. It is causing her to have chest discomfort. No problems breathing. She has tried [id number]-[id number] medications to include Robitussin without any improvement. No fevers. She is here because this morning she noticed that there was bruise in her upper abdomen. She went to the walk-in clinic and was sent to the emergency department. She has no abdominal tenderness. No bruising anywhere else except for the epigastrium reason. She does not remember a specific trauma to this area although she states that she does have to bend over sometimes in order to cough and goes into coughing fits that can last for minutes. She was not on blood thinners. She has injured her sternum in the past but that was years ago. Related Data Home Medications Medication Instructions Recorded Confirmed calcium citrate 200 mg (950 mg) 200 mg PO DAILY ##0 04/29/11 10/31/23 tablet cholecalciferol (vitamin D3) 50 50 mcg PO DAILY ##0 04/29/11 10/31/23 mcg (2,000 unit) capsule (Vitamin D3) glucosamine sulfate 500 mg capsule 500 mg PO DAILY ##0 04/29/11 10/31/23 multivitamin 1 cap PO DAILY ##0 04/29/11 10/31/23 omega-3 fatty acids 1,000 mg PO DAILY ##0 04/29/11 10/31/23 zinc 10 mg tablet 30 mg PO DAILY ##0 04/29/11 10/31/23 zoledronic acid 5 mg/100 mL in 1 ea IV ONCE 09/22/22 10/31/23 mannitol 5 %-water intravenous piggybck (Reclast) Previous Rx's Medication Instructions Recorded estradiol 10 mcg vaginal tablet 10 mcg vaginal .COMPLEX Vaginal 09/22/22 (Vagifem) atrophy #24 tabs folic acid 1 mg tablet 1 mg PO DAILY #90 tabs 04/17/23 phenazopyridine 200 mg tablet 200 mg PO TID 6 doses #6 tabs 08/13/23 (Pyridium) mefloquine 250 mg tablet See Rx Instructions PO .COMPLEX 10/09/23 #16 tabs hydrocodone 5 mg-acetaminophen 325 1 tab PO Q6H PRN pain #10 tabs 10/27/23 mg tablet benzonatate 100 mg capsule 100 mg PO BID-TID PRN cough #21 10/31/23 caps Allergies Allergy/AdvReac Type Severity Reaction Status Date / Time No Known Drug Allergies Allergy Verified 10/31/23 12:35 Review of Systems Constitutional Constitutional: Reports system reviewed and no additional complaints, except as documented Cardiovascular Cardiovascular: Reports system reviewed and no additional complaints, except as documented Respiratory Respiratory: Reports system reviewed and no additional complaints, except as documented Gastrointestinal Gastrointestinal: Reports system reviewed and no additional complaints, except as documented Integumentary/Breasts Skin/Breast: Reports system reviewed and no additional complaints, except as documented Neurologic Neurologic: Reports system reviewed and no additional complaints, except as documented Hematologic/Lymphatic On Anticoagulants: No Patient History Medical History PCT (porphyria cutanea tarda) History of colonic polyps Primary osteoarthritis involving multiple joints Polyneuropathy, unspecified MGUS (monoclonal gammopathy of unknown significance) Age-related osteoporosis without current pathological fracture Mixed hyperlipidemia Surgical History H/O vaginal surgery (~04/23/21) Family History Father Cancer Grandfather Heart disease Grandmother Stroke Mother Cancer Social History details: , one son and one daughter household members: spouse Smoking Status: Never smoker alcohol intake: current Smoking Status: Never smoker alcohol intake frequency: 0-2 drinks per day Substance Use Type: does not use Exam Initial Vital Signs Initial Vital Signs: Vital Signs Temperature 98.2 F 10/31/23 13:03 Pulse Rate 72 10/31/23 13:03 Respiratory Rate 16 10/31/23 13:03 Blood Pressure 150/74 H 10/31/23 13:03 Pulse Oximetry 99 10/31/23 13:03 Oxygen Delivery Method Room Air 10/31/23 13:03 [facility] Head: normal to inspection and normocephalic Chest Other: Tenderness to palpation over the xiphoid region which is where the bruise is located. Resp Effort & Inspection: normal respiratory effort Auscultation: clear to auscultation bilaterally Cardio Rate: regular rate and bradycardic GI Inspection: normal to inspection and non-distended Palpation: soft, No firm and No tender Skin Other: Large area of bruising in the epigastrium and xiphoid region. She is tender over this area but nowhere else. She has no bruising on her flanks. No bruising on the rest of her chest. Neuro General: patient alert, patient awake and moves all extremities Extrem General: normal to inspection and capillary refill normal Course Orders Ordered: ED Orders 10/31/23 13:37 XR acute abdomen series Stat 10/31/23 14:08 Complete Blood Count AUTO DIFF Stat Comprehensive Metabolic Panel Stat Lipase Stat PTT Partial Thromboplastin [place] Stat Prothrombin Time INR Stat Discontinued Medications Benzonatate (Benzonatate 100 Mg Capsule) 100 mg PO NOW ONE Stop: 10/31/23 13:38 Last Admin: 10/31/23 14:09 Dose: 100 mg Documented By: KF Vital Signs Vital signs: Vital Signs - 8 hr 10/31/23 13:03 Temperature 98.2 F Pulse Rate 72 Respiratory Rate 16 Blood Pressure 150/74 H Pulse Oximetry 99 Oxygen Delivery Method Room Air MDM - Recheck/Abnormal Lab/Rx Lab Data 10/31/23 14:08 10/31/23 14:08 Labs: Lab Results 10/31/23 Range/Units 14:08 WBC 6.9 (4.5-11.0) X10^3/uL RBC 4.17 (4.0-5.2) X10^6/uL Hgb 12.6 (12.0-16.0) g/dL Hct 37.0 (36-46) % MCV 88.7 (80-100) fL MCH 30.2 (26-34) PG MCHC 34.0 (30-36) % RDW 13.4 (11.6-14.8) % Plt Count 411 H (150-400) X10^3/uL Neut % (Auto) 64.5 (50-75) % Lymph % (Auto) 22.9 L (25-40) % Edwards % (Auto) 9.6 (3-14) % Eos % (Auto) 1.8 L (2-4) % Baso % (Auto) 1.2 (0-2) % Neut # (Auto) 4400 (2655-7828) /uL Lymph # (Auto) 1600 (6269-7500) /uL Edwards # (Auto) 700 (0-900) /uL Eos # (Auto) 100 (0-450) /uL Baso # (Auto) 100 (0-100) /uL PT 12.6 H (9.4-12.5) SECONDS INR 1.1 (0.9-1.3) APTT 30 (25.1-36.5) SECONDS Sodium 137 (137-145) mmol/L Potassium 4.0 (3.4-5.1) mmol/L Chloride 104 (98-107) mmol/L Carbon Dioxide 27 (22-32) mmol/L BUN 13 (7-17) mg/dL Creatinine 0.61 (0.52-1.04) mg/dL Estimated GFR > 60 (>60) mL/min BUN/Creatinine Ratio 21.3 (6-22) Glucose 90 (80-110) mg/dL Calcium 9.7 (8.4-10.2) mg/dL Total Bilirubin 0.7 (0.2-1.3) mg/dL AST 54 H (14-36) IU/L ALT 37 H (<35) IU/L Alkaline Phosphatase 65 (38-126) U/L Total Protein 7.2 (6.3-8.2) g/dL Albumin 3.9 (3.5-5.0) g/dL Globulin 3.3 (1.7-4.1) g/dL Albumin/Globulin Ratio 1.2 (1.0-2.8) Lipase 172 (23-300) U/L Imaging Data Acute abdominal series: Radiologist's Impression: PROCEDURE: XR ACUTE ABDOMEN SERIES INDICATIONS: Epigastric bruising TECHNIQUE: One view chest and two views of the abdomen were acquired. COMPARISON: [facility], CR, XR LUMBAR SPINE 2 OR 3 VIEWS, 01/04/2018, 15:55. [facility], CR, L-SPINE 2-3 VIEWS, 09/22/2016, 16:00. [facility], CR, XR RIBS LEFT WITH PA CHEST, 11/20/2018, 14:19. [facility], CR, XR CHEST 1V, 10/27/2023, 9:25. FINDINGS: Surgical changes and devices: Right lower neck postoperative clips are seen. Chest: Lungs are clear. Heart size is normal. No pleural effusions. No pneumoperitoneum. Abdomen: Bowel gas pattern is normal. There is a moderate amount of stool seen within the colon. Hyperdense foci can be seen involving the abdomen, which are attributed to ingested material, although differential diagnosis includes soft tissue calcification. Pelvic phleboliths are incidentally noted. Visualized solid organ contours appear normal. Bones: No suspicious bony lesions. Degenerative changes are seen, which are worst involving the lower lumbar spine. IMPRESSION: No imaging explanation is found for this patient's presenting symptoms. There is a moderate amount of stool seen within the colon. Please correlate with an underlying history of constipation. Postoperative and degenerative changes are seen. MDM Narrative Medical decision making narrative: Patient states that the cough does seem to be better after a dose of Tessalon here in the ER. No respiratory distress. She does have an area of bruising in her epigastrium/lower chest/sternum region. This is the only area where she is having discomfort. The rest of her abdominal exam chest exam is unremarkable. There was no other bruising. Her labs are unremarkable. X-rays are unremarkable. This potentially could be bruising just from the cough that she has been having she states that it is fairly profound. We will hold on further radiologic studies for now as I have low suspicion for an acute intra-abdominal issue such as a splenic rupture based on her workup and exam here today. Patient was given strict follow up instructions. She expressed understanding and agreement. Discharge Plan Departure Patient Disposition: Home Clinical Impression: Cough, Superficial bruising of abdominal wall Instructions: Cough Activity Restrictions/Additional Instructions: Use the Tessalon Perles that you were given a prescription for today as needed for the cough. Be sure that you are staying hydrated. If the bruising on your abdomen worsens or changes or he developed new bruising like we discussed please return to the emergency department for further evaluation. Prescriptions: New benzonatate 100 mg capsule 100 mg PO BID-TID PRN (Reason: cough) Qty: 21 0RF No Action phenazopyridine [Pyridium] 200 mg tablet 200 mg PO TID 0 Days Qty: 6 0RF glucosamine sulfate 500 mg Capsule 500 mg PO DAILY Qty: 0 multivitamin Capsule 1 cap PO DAILY Qty: 0 zinc 10 mg Tablet 30 mg PO DAILY Qty: 0 calcium citrate 200 mg (950 mg) Tablet 200 mg PO DAILY Qty: 0 omega-3 fatty acids Capsule 1,000 mg PO DAILY Qty: 0 cholecalciferol (vitamin D3) [Vitamin D3] 50 mcg (2,000 unit) Capsule 50 mcg PO DAILY Qty: 0 folic acid 1 mg tablet 1 mg PO DAILY Qty: 90 3RF zoledronic vznf-jdvuvjhk-jepbd [Reclast] 5 mg/100 mL piggyback 1 ea IV ONCE Rx Instructions: Once yearly estradiol [Vagifem] 10 mcg tablet 10 mcg Vaginal .COMPLEX Qty: 24 3RF Rx Instructions: Placed in vagina twice a week mefloquine 250 mg tablet See Rx Instructions PO .COMPLEX Qty: 16 0RF Rx Instructions: take 250mg same day each week x3wk before exposure, during time in area, and x4wk after leaving PO hydrocodone-acetaminophen 5-325 mg tablet 1 tab PO Q6H PRN (Reason: pain) Qty: 10 0RF Referrals: Pepe Palencia MD [Primary Care Provider] - Stand Alone Forms: Patient Portal/API
--- NOTE | 2023-10-31 13:37 | DI.RAD.S_ITS ---
PROCEDURE: XR ACUTE ABDOMEN SERIES INDICATIONS: Epigastric bruising TECHNIQUE: One view chest and two views of the abdomen were acquired. COMPARISON: [facility], CR, XR LUMBAR SPINE 2 OR 3 VIEWS, 01/04/2018, 15:55. [facility], CR, L-SPINE 2-3 VIEWS, 09/22/2016, 16:00. [facility], CR, XR RIBS LEFT WITH PA CHEST, 11/20/2018, 14:19. [facility], CR, XR CHEST 1V, 10/27/2023, 9:25. FINDINGS: Surgical changes and devices: Right lower neck postoperative clips are seen. Chest: Lungs are clear. Heart size is normal. No pleural effusions. No pneumoperitoneum. Abdomen: Bowel gas pattern is normal. There is a moderate amount of stool seen within the colon. Hyperdense foci can be seen involving the abdomen, which are attributed to ingested material, although differential diagnosis includes soft tissue calcification. Pelvic phleboliths are incidentally noted. Visualized solid organ contours appear normal. Bones: No suspicious bony lesions. Degenerative changes are seen, which are worst involving the lower lumbar spine. IMPRESSION: No imaging explanation is found for this patient's presenting symptoms. There is a moderate amount of stool seen within the colon. Please correlate with an underlying history of constipation. Postoperative and degenerative changes are seen. Dictated by: Lyle Crowder M.D. on 10/31/2023 at 13:18 Approved by: Lyle Crowder M.D. on 10/31/2023 at 13:22
[2023-10-31] MEDS: BENZONATATE 100 MG CAPSULE PO (14:09)
--- NOTE | 2023-10-31 14:10 | PC.NURSE ---
labs obtained via L [facility], unable to place PIV, Dr. Worthy aware, okay w/o for now.
[2023-10-31 14:14] LABS: Add Manual Diff / Slide Review NO; Basophils Absolute Auto 100 /uL (0-100); Basophils Percent Auto 1.2 % (0-2); Eosinophils Absolute Auto 100 /uL (0-450); Eosinophils Percent Auto 1.8 % (2-4); Hemoglobin 12.6 g/dL (12.0-16.0); Lymphocytes Absolute Auto 1600 /uL (1100-4500); Lymphocytes Percent Auto 22.9 % (25-40); Mean Corpuscular Hemoglobin 30.2 PG (26-34); Mean Corpuscular Volume 88.7 fL (80-100); Monocytes Absolute Auto 700 /uL (0-900); Monocytes Percent Auto 9.6 % (3-14); Neutrophils Absolute Auto 4400 /uL (1500-7000); Neutrophils Percent Auto 64.5 % (50-75); Platelet Count 411 X10^3/uL (150-400); Red Blood Cell Count 4.17 X10^6/uL (4.0-5.2); Red Cell Distribution Width 13.4 % (11.6-14.8); White Blood Cell Count 6.9 X10^3/uL (4.5-11.0)
[2023-10-31 14:27] LABS: INR 1.1 (0.9-1.3); Prothrombin Time 12.6 SECONDS (9.4-12.5)
[2023-10-31 14:29] LABS: PTT Partial Thromboplastin Tim 30 SECONDS (25.1-36.5)
[2023-10-31 14:36] LABS: Alanine Aminotransferase 37 IU/L (<35); Albumin 3.9 g/dL (3.5-5.0); Albumin Globulin Ratio 1.2 (1.0-2.8); Alkaline Phosphatase 65 U/L (38-126); Aspartate Aminotransferase 54 IU/L (14-36); BUN Creatinine Ratio 21.3 (6-22); Bilirubin Total 0.7 mg/dL (0.2-1.3); Blood Urea Nitrogen 13 mg/dL (7-17); Calcium 9.7 mg/dL (8.4-10.2); Carbon Dioxide 27 mmol/L (22-32); Chloride 104 mmol/L (98-107); Estimated Glomerular Filt Rate > 60 mL/min (>60); Globulin 3.3 g/dL (1.7-4.1); Glucose 90 mg/dL (80-110); HEMOLYSIS 33 (0-50); Lipase 172 U/L (23-300); Sodium 137 mmol/L (137-145); Total Protein 7.2 g/dL (6.3-8.2)
[2023-10-31 15:15] VITALS: BP 119/72; PULSE 61; O2SAT 100
== END 2023-10-31 15:15 | disposition home or self-care (01) ==
PROVIDERS: Emergency Provider Emergency Medicine; PCP Internal Medicine
DX: R05.9 Cough, unspecified (principal); S30.1XXA Contusion of abdominal wall, initial encounter; X58.XXXA Exposure to other specified factors, initial encounter
CPT/HCPCS: 74022; 80053; 83690; 85025; 85610; 85730; 99283; 99284

== ENCOUNTER → 2024-04-12 10:50 | Outpatient (CLI) | payer OTHER, SELFPAY ==
[2021-04-23 15:58] VITALS: BMI 24.1
--- NOTE | 2024-04-12 10:51 | DI.MG.S_ITS ---
BILATERAL DIGITAL SCREENING MAMMOGRAM 3D/2D WITH CAD: 04/12/2024 CLINICAL: Routine screening. Family history breast cancer. Comparison is made to exams dated: 04/08/2023 mammogram, 03/03/2022 mammogram, and 11/26/2020 mammogram - [facility]. Both breasts are heterogeneously dense, which may obscure small masses (category c / 51-75% glandular tissue). Current study was also evaluated with a Computer Aided Detection (CAD) system. There is a new architectural distortion in the right breast at 9 o'clock middle depth. No other significant masses, calcifications, or other findings are seen in either breast. IMPRESSION: INCOMPLETE: NEEDS ADDITIONAL IMAGING EVALUATION The new architectural distortion in the right breast is indeterminate. A diagnostic mammogram and ultrasound is recommended. Based on Tyrer-Cuzick model (a risk assessment model), the patient's lifetime risk is 20.7% and her 10 year risk is 9.9%. If a patient has an elevated risk, a more comprehensive evaluation should be considered and/or a referral to a genetic counselor. The [place] [employer], [employer], and NCCN Guidelines advise the consideration of Breast MRI as an adjunct to screening mammography in patients whose Lifetime risk to develop breast cancer is 20% or higher. This exam was interpreted at Station ID: [id number]. NOTE: For mammograms, a report in lay terms will be sent to the patient. Approximately 15% of breast malignancies will not be visualized mammographically. In the management of a palpable breast mass, a negative mammogram must not discourage biopsy of a clinically suspicious lesion. Electronically Signed By: Vicente horvath/marc:04/12/2024 12:32:36 copy to: ESTHER REYES letter sent: Followup Recommended ACR BI-RADS Category 0: Incomplete [id number]
== END ==
PROVIDERS: PCP Internal Medicine; Referring Provider Internal Medicine; Visit Provider Internal Medicine
DX: Z12.31 Encounter for screening mammogram for malignant neoplasm of breast (principal); Z80.3 Family history of malignant neoplasm of breast; R92.333 Mammographic heterogeneous density, bilateral breasts
CPT/HCPCS: 77063; 77067

== ENCOUNTER → 2024-05-05 12:03 | Outpatient (CLI) | payer MEDICARE, OTHER, SELFPAY ==
[2021-04-23 15:58] VITALS: BMI 24.1
--- NOTE | 2024-05-05 12:08 | DI.US.S_ITS ---
ULTRASOUND OF RIGHT BREAST AND AXILLA: 05/05/2024 CLINICAL: Follow up from addtional views. Comparison is made to exams dated: 05/05/2024 mammogram, 04/12/2024 mammogram, 04/08/2023 mammogram, 04/01/2022 ultrasound, and 03/03/2022 mammogram - [facility]. Color flow and real-time ultrasound of the right breast axilla were performed. There is a 1.4 cm x 1 cm x 1.4 cm irregular mass with an indistinct margin in the right breast at 9 o'clock middle depth 4 cm from the nipple. This irregular mass displays posterior acoustic shadowing. This correlates with mammography findings. Color flow imaging demonstrates that there is vascularity present. No significant abnormalities were seen sonographically in the right axilla. IMPRESSION: HIGHLY SUGGESTIVE OF MALIGNANCY The 1.4 cm x 1 cm x 1.4 cm irregular mass in the right breast is highly suggestive of malignancy. An ultrasound guided biopsy is recommended. No sonographic abnormalities identified in the axilla. No axillary adenopathy. Findings and recommendations were discussed with the patient by Dr. Qureshi during today's examination. This exam was interpreted at Station ID: [id number]. Electronically Signed By: Kong Broderick M.D. aty/:05/05/2024 13:47:37 copy to: ESTHER REYES letter sent: Biopsy Required Ultrasound BI-RADS: 5 Highly suggestive of malignancy
--- NOTE | 2024-05-05 12:08 | DI.MG.S_ITS ---
UNILATERAL RIGHT DIGITAL DIAGNOSTIC MAMMOGRAM 3D/2D WITH ADDITIONAL VIEWS: 05/05/2024 CLINICAL: Additional evaluation requested from prior study. Comparison is made to exams dated: 04/12/2024 mammogram, 04/08/2023 mammogram, 03/03/2022 mammogram, and 11/26/2020 mammogram - [facility]. The right breast is heterogeneously dense, which may obscure small masses (category c / 51-75% glandular tissue). The previously described new architectural distortion with an indistinct margin in the right breast at 9 o'clock middle depth is confirmed in additional views. Possible 1.0 cm associated focal asymmetry. No other significant masses or calcifications are seen in the breast. IMPRESSION: INCOMPLETE: NEEDS ADDITIONAL IMAGING EVALUATION The new architectural distortion in the right breast is indeterminate. An ultrasound is recommended for further evaluation and is scheduled to immediately follow this examination. Based on Tyrer-Cuzick model (a risk assessment model), the patient's lifetime risk is 20.7% and her 10 year risk is 9.9%. If a patient has an elevated risk, a more comprehensive evaluation should be considered and/or a referral to a genetic counselor. The [place] [employer], [employer], and NCCN Guidelines advise the consideration of Breast MRI as an adjunct to screening mammography in patients whose Lifetime risk to develop breast cancer is 20% or higher. This exam was interpreted at Station ID: [id number]. NOTE: For mammograms, a report in lay terms will be sent to the patient. Approximately 15% of breast malignancies will not be visualized mammographically. In the management of a palpable breast mass, a negative mammogram must not discourage biopsy of a clinically suspicious lesion. Electronically Signed By: Kong Broderick M.D. aty/:05/05/2024 13:27:17 copy to: ESTHER REYES ACR BI-RADS Category 0: Incomplete [id number]
== END ==
LOC: MAMMO 12:07
PROVIDERS: PCP Internal Medicine; Referring Provider Internal Medicine; Visit Provider Internal Medicine
DX: R92.8 Other abnormal and inconclusive findings on diagnostic imaging of breast (principal); R92.331 Mammographic heterogeneous density, right breast; N63.15 Unspecified lump in the right breast, overlapping quadrants
CPT/HCPCS: 76642; 77065; G0279

== ENCOUNTER → 2024-05-11 14:41 | Outpatient (CLI) | payer MEDICARE, OTHER, SELFPAY ==
[2021-04-23 15:58] VITALS: BMI 24.1
[2024-05-11 15:32] LABS: Hematocrit 38.8 % (36-46); Mean Corpuscular HGB Conc 33.4 % (30-36); Mean Corpuscular Hemoglobin 30.3 PG (26-34); Mean Corpuscular Volume 90.6 fL (80-100); Platelet Count 271 X10^3/uL (150-400); Red Blood Cell Count 4.28 X10^6/uL (4.0-5.2); Red Cell Distribution Width 13.5 % (11.6-14.8); White Blood Cell Count 4.4 X10^3/uL (4.5-11.0)
[2024-05-11 16:17] LABS: Alanine Aminotransferase 20 IU/L (<35); Albumin Globulin Ratio 1.5 (1.0-2.8); Alkaline Phosphatase 54 U/L (38-126); Aspartate Aminotransferase 34 IU/L (14-36); Bilirubin Total 0.5 mg/dL (0.2-1.3); Blood Urea Nitrogen 18 mg/dL (7-17); Calcium 9.3 mg/dL (8.4-10.2); Carbon Dioxide 27 mmol/L (22-32); Chloride 107 mmol/L (98-107); Cholesterol 191 mg/dL (140-199); Estimated Glomerular Filt Rate > 60 mL/min (>60); Globulin 2.7 g/dL (1.7-4.1); Glucose 99 mg/dL (80-110); HDL Cholesterol 80 mg/dL (40-60); HEMOLYSIS < 15 (0-50); LDL Cholesterol Calculated 96 mg/dL (<100); Sodium 140 mmol/L (137-145); Total Protein 6.7 g/dL (6.3-8.2); Triglycerides 73 mg/dL (35-150)
[2024-05-13 15:36] LABS: Immunoglobulin A, Serum 142 mg/dL (87-352); Immunoglobulin G,Serum 903 mg/dL (586-1602); Immunoglobulin M, Serum 60 mg/dL (26-217)
[2024-05-13 16:08] LABS: Alpha-1-Globulin 0.2 g/dL (0.0-0.4); Alpha-2-Globulin 0.7 g/dL (0.4-1.0); Gamma Globulin 0.9 g/dL (0.4-1.8); Globulin Total 2.6 g/dL (2.2-3.9); Protein, Total 6.6 g/dL (6.0-8.5)
== END ==
PROVIDERS: PCP Internal Medicine; Referring Provider Internal Medicine; Visit Provider Internal Medicine
DX: D47.2 Monoclonal gammopathy (principal); E78.2 Mixed hyperlipidemia; M81.0 Age-related osteoporosis without current pathological fracture
CPT/HCPCS: 36415; 80053; 80061; 82784; 84155; 84165; 85027; 86334

== ENCOUNTER → 2024-05-19 12:44 | Outpatient (CLI) | payer MEDICARE, OTHER, SELFPAY ==
[2021-04-23 15:58] VITALS: BMI 24.1
--- NOTE | 2024-05-19 12:45 | DI.US.S_ITS ---
ULTRASOUND GUIDED BIOPSY RIGHT BREAST USING VACUUM DEVICE WITH MARKING DEVICE INSERTED AND POST DIGITAL MAMMOGRAPHIC IMAGIN05/19/2024 CLINICAL: Right breast mass BX 09:00 4cmfn. PATIENT CONSENT: Risks (minor bleeding, infection, vasovagal reaction and repeat procedure), benefits and alternatives were explained to the patient and written informed consent was obtained. Correlation is made to exams dated: 05/19/2024 mammogram, 05/05/2024 ultrasound, 05/05/2024 mammogram, 04/12/2024 mammogram, 04/08/2023 mammogram, and 04/01/2022 [facility]. An ultrasound guided biopsy using real-time ultrasound was performed for the mass located in the right breast at 9 o'clock, 4 cm from the nipple. The skin was prepped in the usual manner. Local anesthetic was administered to the access site. The abnormality was approached from the lateral aspect. A 13 gauge biopsy needle was placed adjacent to the abnormality under ultrasound guidance. Once the needle was documented to be in the correct location, three specimens were obtained using the Mammotome biopsy system. A Vision clip was inserted into the biopsy cavity. Post procedure mammographic imaging demonstrates the biopsy clip in the targeted area. The specimens were sent to the laboratory for pathological analysis. Biopsy was performed by Juan Haq RPA and Dr. Rogers. IMPRESSION: ULTRASOUND GUIDED BIOPSY BENIGN Successful ultrasound guided biopsy of right breast mass at 9 o'clock, 4 cm from the nipple performed by Juan Haq RPA and Dr. Rogers. Pathology demonstrate adipose tissue. Pathology results are disconcordant with imaging findings. A repeat ultrasound guided biopsy is recommended. This exam was interpreted at Station ID: [id number]. Aracelis Salvador M.D., Ph.D. Mack Tony M.D. ,slc/:05/23/2024 12:05:34 copy to: ESTHER REYES
--- NOTE | 2024-05-19 12:46 | DI.MG.S_ITS ---
UNILATERAL RIGHT DIGITAL DIAGNOSTIC MAMMOGRAM 3D/2D - RIGHT BREAST POST-PROCEDURE IMAGING FOR MARKER PLACEMENT: 05/19/2024 CLINICAL: Post right breast ultrasound biopsy, clip placement imaging. Comparison is made to exams dated: 05/05/2024 mammogram, 04/12/2024 mammogram, 04/08/2023 mammogram, and 03/03/2022 mammogram - [facility]. The right breast is heterogeneously dense, which may obscure small masses (category c / 51-75% glandular tissue). Post biopsy mammogram demonstrates Vision biopsy clip just lateral and posterior to the targeted mass. IMPRESSION: POST PROCEDURE MAMMOGRAM FOR MARKER PLACEMENT Post biopsy mammogram demonstrates Vision biopsy clip just lateral and posterior to the targeted mass. Please see separately dictated ultrasound guided biopsy report for additional details and pathology. Based on Tyrer-Cuzick model (a risk assessment model), the patient's lifetime risk is 20.0% and her 10 year risk is 9.9%. If a patient has an elevated risk, a more comprehensive evaluation should be considered and/or a referral to a genetic counselor. The [place] [employer], [employer], and NCCN Guidelines advise the consideration of Breast MRI as an adjunct to screening mammography in patients whose Lifetime risk to develop breast cancer is 20% or higher. This exam was interpreted at Station ID: [id number]. NOTE: For mammograms, a report in lay terms will be sent to the patient. Approximately 15% of breast malignancies will not be visualized mammographically. In the management of a palpable breast mass, a negative mammogram must not discourage biopsy of a clinically suspicious lesion. Electronically Signed By: Aracelis Salvador M.D., Ph.D. eb/:05/19/2024 17:40:11 copy to: ESTHER REYES ACR BI-RADS Category Post-procedure mammogram for marker placement
--- NOTE | 2024-05-19 13:48 | PATH_ITS ---
[facility] Accession Number: [id number] No. of containers..01 Tissue . 01 Material submitted: . breast - RT BREAST . 01 Diagnosis: RIGHT BREAST, BIOPSY: Predominantly mature adiopose tissue and scant, benign breast parenchyma. Please see comment. MRV 05/20/2024 1533 Local . 01 Comment: The presence of mature adiopose tissue raises the possibility of an intraparenchymal lipoma. Please correlate these findings with imaging and clinical studies. If imaging and / or clinical studies are suspicious for malignancy, consider a re-biopsy of the lesion, if clinically appropriate. . As part of ongoing lead quality technician, this case is also reviewed by Dr. Ирина Nolan, who agrees with the interpretation. . Dr. Phoebe Joseph conveyed results to Dr. Palencia's nurse, Gaye Whitley, on 05/20/2024 at approximately 2:55 p.m. . 01 Electronically signed: . Phoebe Joseph MD, Pathologist NPI- [id number] . 01 Gross description: . Received is one foramlin-filled container labeled with the patient's name, and designated Rt. breast. Received with plastic filter in container and sample loose in container, and consists of multiple fragments of yellow-delgado soft tissue which range in size from less than 0.1 cm to 0.7 x 0.2 x 0.2 cm. Specimen is filtered, wrapped, and entirely submitted in cassette A1. . Possible collection date and time per requisition 05/19/2024 at 1356 hours. Total fixation time approximately 16 hours. ([id number]) /ALINE 05/20/2024 0623 Local . 01 Pathologist provided ICD-10: R92.8 . 01 CPT . 338226 Performed at: [address] [address], [place], [place] [id number] MD Min Vazquez MD Phone: [phone]
== END ==
PROVIDERS: PCP Internal Medicine; Referring Provider Internal Medicine; Visit Provider Internal Medicine
DX: R92.8 Other abnormal and inconclusive findings on diagnostic imaging of breast (principal); N63.15 Unspecified lump in the right breast, overlapping quadrants; R92.331 Mammographic heterogeneous density, right breast
CPT/HCPCS: 19083; 77065

== ENCOUNTER 2024-06-08 08:27 | Day surgery (SDC) | payer MEDICARE, OTHER, SELFPAY ==
[2021-04-23 15:58] VITALS: BMI 24.1
[2024-06-06 12:24] VITALS: BMI 24.1
--- NOTE | 2024-06-07 10:27 | PM.PREOP ---
Pre-operative Note Interval Note History & Physical reviewed/Exam performed by Physician: Yes Changes to H&P: No
--- NOTE | 2024-06-08 | PATH_ITS ---
[facility] Accession Number: [id number] No. of containers..02 Tissue . 01 Material submitted: . PART A: breast - RIGHT BREAST MASS PART B: breast - POSTERIOR MARGIN RIGHT BREAST . 01 Diagnosis: A. RIGHT BREAST MASS, NEEDLE GUIDED LUMPECTOMY: Invasive adenocarcinoma of the breast. Please see cancer case summary. . B. POSTERIOR MARGIN, RIGHT BREAST: Invasive adenocarcinoma of the breast. Please see cancer case summary. . CANCER CASE SUMMARY: Invasive carcinoma of the breast. . Part A: Specimen: Right breast mass. Procedure: Needle guided lumpectomy. Specimen laterality: Right. . Tumor: Tumor site: 9 o'clock, middle depth, 4 cm from nipple. Histologic type: Invasive carcinoma of no special type (ductal). Histologic grade: Glandular/tubular differentiation: Score 3/3. Nuclear pleomorphism: Score 3/3. Mitotic rate: Score 1/3. Overall Grade: Grade 2 (score 7/9). Tumor size: 25 mm (present in slices 5-8) . Margins: Margin status for invasive carcinoma: invasive carcinoma present at margins. Margins involved by invasive carcinoma: Superior (8 mm). Medial (1 mm at superomedial junction). Distance from invasive carcinoma to inferior margin: 9 mm. Distance from invasive carcinoma to anterior margin: Greater than 10 mm. Distance from invasive carcinoma to posterior magiin: Greater than 10 mm. Distance from invasive carcinoma to lateral margin: Greater than 10 mm. Margin status for DCIS: Not applicable. . Performed on block A7: Predictive marker immunohistochemical studies are performed on block A7 with the invasive carcinoma showing the following results: . Estrogen receptor (SP1): Positive (91-100% of cells, moderate intensity). Progesterone receptor (1E2): Negative (internal control stains appropriately). Her2 (4B5): Negative (1+). Percentage of cells with uniform intense complete membrane stainin. . . Part B: Specimen: Posterior margin, right breast. Procedure: Excision (less than total mastectomy). Specimen laterality: Right. . Tumor Tumor site: 9 o'clock, middle depth, 4 cm from nipple. Histologic type: Invasive carcinoma of no special type (ductal). Histologic grade: Glandular (acinar/tubular differentiation): Score 3/3. Nuclear pleomorphism: Score 3/3. Mitotic rate: Score 1/3. Overall grade: Grade 2 (score 7/9). Tumor size: 20 mm (present in slices 7-10). Please see comment. . Ductal carcinoma in situ: Present. Size of DCIS: Small focus approximately 1 mm. Architectural pattern: Lobular extension of DCIS, solid pattern. Nuclear grade: Grade 3 (high). Necrosis: Not identified. . Margins: Margin status for invasive carcinoma: Invasive carcinoma present at margin. Margins involved by invasive carcinoma: Inferior: Multifocally present, largest extent 14 mm. Medial: Minute focus 1 mm. Please see comment. Distance to anterior margin: Greater than 10 mm. Distance to posterior margin: Greater than 10 mm. Distance to lateral margin: Greater than 10 mm. Distance to superior margin: 4 mm. . Margin status for DCIS: Closest margin to DCIS: Superior 4 mm. All other margins greater than 10 mm. . Breast biomarkers performed on block B7: Predictive marker immunohistochemical studies are performed on block B7 with the invasive carcinoma showing the following results: . Estrogen receptor (SP1): Positive (91-100% of cells, strong intensity). Progesterone receptor (1E2): Negative (internal control stains positive). Her2 (4B5): Negative (1+). Percentage of cells with uniform intense complete membrane stainin% . Total fixation time is approximately 53 hours following additional fixation. Specimen was removed on 06/08/2024, time not provided. Cold ischemic time cannot be calculated. The scoring criteria for breast biomarkers by immunohistochemistry is based on the ASCO/CAP guidelines (Phil AC et al, J Clin Oncol: 2018 May 04;36(20):3364-4673 and Kevin ME et al, Arch Pathol Lab Med: 2009;134(6):907-22). Deparaffinized sections of formalin fixed tissue (along with appropriate positive controls) are incubated with the above antibody(s). Using the automated Magine stainer, tissue is incubated with the designated antibody which is then localized by a non-biotin, dual polymer detection system. The external controls are reviewed for appropriate reactivity and found to be adequate. Results on the target cell population are indicated above. These tests have not been validated on decalcified tissue. This test was developed and its performance characteristics determined by [facility]. It has not been cleared or approved by the U.S. Food and Drug Administration. The FDA has determined that such clearance or approval is not necessary. This test is used for clinical purposes. It should not be regarded as investigational or for research. . Lymphatic and/or vascular invasion: Present. Microcalcifications: Present in invasive carcinoma and nonneoplastic tissue. Treatment effect: No known presurgical therapy. . Regional lymph nodes: Not applicable (no regional lymph nodes submitted or found). Distant metastasis: Not applicable. . pTNM Classification (AJCC 8th Edition): pT2 (25 mm greatest dimension from part A and 20 mm greatest dimension in part B) pN not assigned (no nodes submitted or found) pM not applicable (cannot be determined from the submitted specimen). . Additional findings: Needle localization guidewire in part A. Vision biopsy clip in part B. Background fibrocystic change. Changes consistent with previous instrumentation in part B. [facility] 06/21/2024 1432 Local . 01 Comment: Part B: Slice 12 demonstrates a minute (1 mm) focus concerning for carcinoma that appears to be present at the medial margin (yellow ink). This focus is distorted on the H/E and on the IHC stained slides. It isn't histologically obvious how it relates to the larger tumors excised in parts A and B. However, the part B tumor in slices 7-10 does demonstrate an involved inferior margin at slice 9, close (3 mm) to the medial aspect of resection in that slice. . Dr. Phoebe Joseph spoke with Dr. Coco Perez's adminitrator, and left contact information to convey results on 06-21-24 at approximately 2:33 p.m. . 01 Electronically signed: . Phoebe Joseph MD, Pathologist NPI- [id number] . 01 Gross description: . A. Received: In formalin, labeled with two patient identifiers and right breast mass. Specimen: A previously inked right lumpectomy. Weight: 27 grams. Measurement: 6.3 cm from anterior to posterior, 4.6 cm from medial to lateral, 2.9 cm from superior to inferior. Skin ellipse: Absent. Wire: Present, penetrating inferoposterior and terminating anterosuperior. Margins: Inked by the surgeon as follows: Anterior green, inferior blue, lateral orange, medial yellow, posterior black, superior red. Inking reinforced at the bench. Sliced: From anterior to posterior into 10 slices. Lesion: A white, rubbery, fibrous, ill-defined lesion. Size: 6.7 x 3.5 x 1.7 cm. Slices involved: Slices 1-10. Biopsy site: Absent. Distance to margins: The lesion grossly approaches all margins. Other: The remaining cut surfaces are yellow adipose with no additional lesions identified. The fibrous tissue occupies approximately 50% of the cut surface. Fixation time: The specimen was removed on 06/08/2024, time not provided. Cold ischemic time cannot be calculated. Total fixation time is approximately 53 hours following additional fixation. Administrative Project Coordinator sections are submitted as follows: A1-A2: Rep slice 1 perpendicular. A3-A4: Composite slice 3. A5-A6: Composite slice 5. A7-A8: Composite slice 7. A9-A10: Composite slice 9. A11-A12: Rep slice 10 perpendicular. The remaining specimen is submitted as follows: A13: Remaining slice 1, green margin perpendicular. A14-A15: Composite slice 2. A16-A17: Composite slice 4. A18-A19: Composite slice 6. A20-A21: Composite slice 8. A22: Remaining slice 10 black margin perpendicular. . B. Received: In formalin, labeled with two patient identifiers and posterior margin right breast. Specimen: A previously inked right lumpectomy. Weight: 27 grams. Measurement: 6.6 cm from anterior to posterior, 4.7 cm from medial to lateral, 2.0 cm from superior to inferior. Wire: Absent. Margins: Inked by the surgeon as follows: anterior green, inferior blue, lateral orange, medial yellow, posterior black, superior red. Inking reinforced at the bench. Sliced: From anterior to posterior into 13 slices. Lesion: Description: A rubbery fibrous ill-defined lesion. Size: 6.6 x 3.6 x 2.2 cm. Slices involved: Slices 1-13. Biopsy site: Present within slice 10 is a Vision shaped biopsy clip, 0.2 cm from the nearest blue-inked margin and is located within slice 11. Distance to margins: The fibrous lesion grossly approaches all inked margins. Other: The remaining cut surfaces are yellow adipose tissue with no discrete lesions identified. Fixation: The specimen was removed on 06/08/2024, time not provided. Cold ischemic time cannot be calculated. Total fixation time is approximately 53 hours following additional fixation. Administrative Project Coordinator sections are submitted as follows: B1: Rep slice 1 perpendicular. B2: Entire slice 2. B3: Composite slice 4. B4: Composite slice 6. B5-B6: Composite slice 8. B7-B8: Composite slice 9. B9-B10: Composite slice 10. B11-B12: Composite slice 11 (biopsy site in B11). B13: Rep slice 13 perpendicular. ([id number]) Remaining specimen is submitted as follows: B14-B15: Remaining slice 1 green margin perpendicular. B16: Entire slice 3. B17: Composite slice 5. B18: Composite slice 7. B19-B20: Composite slice 12. B21: Remaining slice 13 black margin perpendicular. ([id number]) /MRV 06/17/2024 1731 Local . 01 Microscopic: . An immunohistochemistry panel is performed to further evaluate the cells of interest. The control stains show appropriate reactivity. . RESULTS: Block: A5 MARY ANNE: Positive in region of interest. P63: Negative in region of interest. . These findings are consistent with the presence of invasive adenocarcinoma at this focus. . Block A7 D2-40: Positive in region of interest, supports and interpretation of lymphovascular involvement. GATA3: Positive, consistent with breast origin. E-cadherin: Positive, consistent with ductal differentiation. P63: Absent in regions of interest, consistent with invasive carcinoma. . Block B4 p63: Positive at region of interest, mitigates against invasive carcinoma. MARY ANNE: Positive, supports presence of epithelium at this focus. Myosin: Positive, mitigates against invasive carcinoma at this focus. . Block B5 E-cadherin: Positive, consistent with ductal differentiation. D2-40: Positive at focus of interest, supports interpretation of lymphovascular involvement. P63: Absent in region of interest, consistent with invasive carcinoma. . Block B7 D2-40: Positive in region of interest, supports lymphovascular involvement. P63: Absent in region of interest, supports invasive carcinoma. . Block B16 CK5/6: Focus of interest not present. ER: Focus of interest not present. . Block B19 P63: Absent in region of interest, concerning for invasive carcinoma. Myosin: Absent in region of interest, concerning for invasive carcinoma. . . * This test was developed and its performance characteristics determined by [facility]. It has not been cleared or approved by the U.S. Food and Drug Administration. The FDA has determined that such clearance or approval is not necessary. This test is used for clinical purposes. It should not be regarded as investigational or for research. . 01 Pathologist provided ICD-10: C50.911 . 01 CPT . 806306, 056228, W01896, U20970, 325827, 209349, 152155, 946298, 247243, 595089, 225886 Specimen Comment: A courtesy copy of this report has been sent to [phone] Performed at: [address] [address], [place], [place] [id number] MD Min Vazquez MD Phone: [phone]
[2024-06-08 07:59] VITALS: BP 127/78; PULSE 69; RESP 18; TEMP 36.4; O2SAT 99; BMI 24.9
[2024-06-08] MEDS: CEFAZOLIN 2 GM/100 ML PREMIX 100 ML IV (09:40)
--- NOTE | 2024-06-08 10:05 | SUR.OPER ---
Supine on padded OR bed, head on pillow, arms secured on padded arm boards at <90 degrees abduction, legs uncrossed, safety belt at thigh, tape over blanket over lower legs.
[2024-06-08] MEDS: BUPIVACAINE 0.25% (PF) VIAL 30 ML INJ (10:07)
[2024-06-08 10:45] VITALS: BP 116/73; PULSE 77; RESP 14; TEMP 36.2; O2SAT 100
[2024-06-08 10:50] VITALS: BP 118/71; PULSE 73; RESP 13; O2SAT 100
[2024-06-08] MEDS: LACTATED RINGERS 1,000 ML 21 ML IV (10:52)
[2024-06-08 10:55] VITALS: BP 121/73; PULSE 68; RESP 12; O2SAT 100
[2024-06-08 10:57] VITALS: BP 108/70; PULSE 69; RESP 12; TEMP 36.2; O2SAT 100
--- NOTE | 2024-06-08 11:06 | PM.OP.1 ---
Operative Date/Time/Diagnoses Date of procedure: 06/08/24 Time of procedure: 11:06 Pre-op diagnosis: Right breast mass Post-op diagnosis: same Procedure & Clinicians Procedure: Right needle guided lumpectomy Same procedure as scheduled: Yes Indications: Patient is a 64-year-old woman with a 1.4 cm mass of the right breast 9 o'clock position. Needle biopsy is discordant from radiographic findings and therefore she is here today for lumpectomy/excisional biopsy Surgeon: Wesley Sepulveda Architect Marine: Romario Edmond Anesthesia Type: General Operative Notes Findings: Fibrotic 4cm area of breast tissue upper outer quadrant. The wire ends within the first specimen. The second specimen labeled posterior margin contains the clip. Specimen(s): other (right breast mass, right breast posterior margin) Estimated Blood Loss (mL): 20 Procedure in detail: The patient underwent needle localization prior to the operation. They were brought to the operating room and placed supine on the table. Bilateral lower extremity compression devices were applied. They were intubated with an LMA. They were prepped and draped in sterile fashion. Time-out was performed. A curvilinear incision on the superior aspect of the right breast was made and subcutaneous tissues were divided. The localizing wire was identified and then brought back within the incision. The end of the wire was within an area of fibrotic breast tissue. This breast mass was excised and then painted as follows: Anterior Green Inferior Blue Lateral [place] Medial Yellow Posterior Black Superior Red Imaging demonstrated that the specimen contained the wire but not the associated clip. The posterior aspect of this wound was fibrotic with cystic structures but is somewhat suspicious for malignancy. An additional posterior margin was obtained and marked in the same fashion. The black inking jo the true posterior margin. Three hemoclips were placed into the wound at the true posterior margin which is essentially the chest wall. Subcutaneous tissues were reapproximated with 3 0 Vicryl sutures skin closed with Monocryl followed by application of Dermabond. The counts were correct. They emerged from anesthesia and were transferred to recovery in stable condition. Complications: none Post-operative Condition: stable Disposition: same day surgery
== END 2024-06-08 11:54 | disposition home or self-care (01) ==
PROVIDERS: PCP Internal Medicine; Referring Provider Surgery; Visit Provider Surgery
PROC: (CPT 19301; principal; 2024-06-08 10:15)
DX: C50.911 Malignant neoplasm of unspecified site of right female breast (principal); Z17.0 Estrogen receptor positive status [ER+]
CPT/HCPCS: 19301; 19285; 76098; 77065; 82962; C1819; J0690; J1100; J1885; J2405; J3010

== ENCOUNTER → 2024-07-18 12:42 | Outpatient (CLI) | payer MEDICARE, OTHER, SELFPAY ==
[2021-04-23 15:58] VITALS: BMI 24.1
--- NOTE | 2024-07-18 12:43 | DI.RAD.S_ITS ---
PROCEDURE: XR DEXA AXIAL SKELETON INDICATIONS: osteoporosis COMPARISON: [facility], , XR DEXA AXIAL SKELETON, 03/11/2021, 14:43. [facility], CR, DEXA AXIAL SKELETON, 11/27/2017, 14:06. [facility], CR, DEXA AXIAL SKELETON, 06/19/2015, 15:55. FINDINGS: Lumbar Spine: Bone mineral density 0.77 g/cm2, T score -1.9, previously -2.6. Left Hip: Bone mineral density 0.888 g/cm2, T score -0.4, previously -0.4. Right Hip: Bone mineral density 0.860 g/cm2, T score -0.7, previously -0.8. Fracture Risk Calculation (when applicable): 10-year fracture risk of a major osteoporotic fracture 8.2 percent and of a hip fracture 0.7 percent. (T score greater or equal to -1.0 to: NORMAL) (T score from -1.1 to -2.4: OSTEOPENIA) (T score less than or equal to -2.5: OSTEOPOROSIS) IMPRESSION: 1. Osteopenia of the lumbar spine. 2. Normal bone density of the hips. Follow-up guidelines as follows: Osteoporosis: Consider a repeat DEXA and Vertebral Fracture Assessment (VFA) exam in 2 years or sooner if medically necessary, to reassess this patient's status. Osteopenia: Consider a repeat DEXA in 2-3 years to reassess this patient's status, or if there is a new clinical indication. Normal: Consider a repeat DEXA in 5 years or sooner, or if there is a new clinical indication. All treatment decisions require clinical judgment and consideration of individual patient factors, including patient preferences, comorbidities, previous drug use, risk factors not captured in the FRAX model (e.g., frailty, falls, vitamin D deficiency, increased bone turnover, interval significant decline in bone density ) and possible under- or over-estimation of fracture risk by FRAX. In addition, the NOF Guide recommends that FDA-approved medical therapies be considered in postmenopausal women and men age >= 50 years with a: * Hip or vertebral (clinical or morphometric) fracture * T-score of <=-2.5 at the spine or hip * Ten-year fracture probability by FRAX of >= 3% for hip fracture or >=20% for major osteoporotic fracture. People with diagnosed cases of osteoporosis or at high risk for fracture should have regular bone mineral density tests. For patients eligible for Medicare, routine testing is allowed once every 2 years. The testing frequency can be increased to one year for patients who have rapidly progressing disease, those who are receiving or discontinuing medical therapy to restore bone mass, or have additional risk factors. Dictated by: Richard Jimenez M.D. on 07/19/2024 at 10:34 Approved by: Richard Jimenez M.D. on 07/19/2024 at 10:45
== END ==
LOC: RAD 12:42
PROVIDERS: PCP Internal Medicine; Referring Provider Internal Medicine; Visit Provider Internal Medicine
DX: M81.0 Age-related osteoporosis without current pathological fracture (principal)
CPT/HCPCS: 77080

== ENCOUNTER 2024-09-18 14:57 | Emergency (ER) | payer MEDICARE, OTHER, SELFPAY ==
[2021-04-23 15:58] VITALS: BMI 24.1
[2024-09-18 15:02] VITALS: BP 132/80; PULSE 87; RESP 20; TEMP 36.9; O2SAT 100; BMI 24.3
--- NOTE | 2024-09-18 15:17 | DI.RAD.S_ITS ---
PROCEDURE: XR CHEST 1V INDICATIONS: chest pain TECHNIQUE: One view of the chest was acquired. COMPARISON: [facility], CR, XR CHEST 1V, 10/27/2023, 9:25. FINDINGS: Surgical changes and devices: Right lower neck clips are seen. There is a tissue aquatic physiotherapist seen on the right. Right chest wall clips are seen. There is a left-sided chest port, with the tip near the cavoatrial junction. Lungs and pleura: Lungs are clear. No pleural effusions or pneumothorax. Mediastinum: Mediastinal contours appear normal. Heart size is normal. Bones and chest wall: No suspicious bony lesions. Age-appropriate bony degenerative changes are seen. Overlying soft tissues appear unremarkable. IMPRESSION: No acute cardiopulmonary abnormality is seen. Postoperative and degenerative changes are seen. Dictated by: Lyle Crowder M.D. on 09/18/2024 at 14:58 Approved by: Lyle Crowder M.D. on 09/18/2024 at 14:59
--- NOTE | 2024-09-18 15:22 | EKG_ITS ---
[address] [address] [place] [address] Test Date: 2024-09-18 Pat Name: Virginie Sandra Department: [facility] Room: Gender: Female Addresser: LUDMILA : 1960 Requested By: Order Number: [id number] Reading MD: Justino Pérez Measurements Intervals [place] Rate: 82 P: 57 NH: 110 QRS: 31 QRSD: 72 T: 19 QT: 344 QTc: 401 Interpretive Statements Sinus rhythm with short NH with occasional premature ventricular complexes Electronically Signed On 09-19-2024 7:54:29 PST by Justino Pérez
--- NOTE | 2024-09-18 15:29 | ED_ITS ---
HPI - Arrhythmia/Palpitations General Chief Complaint: Arrhythmia/Palpitations Stated Complaint: Sent by , Myron HR, SoB Time Seen by Provider: 09/18/24 15:29 Source: patient Mode of arrival: Ambulatory History of Present Illness HPI narrative: 64-year-old woman recently diagnosed with a left breast cancer underwent 1st chemotherapy at [facility] in [place] earlier this week. She had a port placed proximally 2 weeks ago. Today she stated she felt tremulous like she was over stimulated noted that she was tachycardic and feeling slightly short of breath. Did end up going for a walk and actually found that symptoms were improved but continues to have rapid and somewhat irregular heartbeat. Sent in by her oncologist for other evaluation. She has not complaining of chest pain, cough, fevers, abdominal pain, nausea or vomiting Related Data Home Medications Medication Instructions Recorded Confirmed calcium citrate 200 mg (950 mg) 200 mg PO DAILY ##0 04/29/11 06/22/24 tablet cholecalciferol (vitamin D3) 50 50 mcg PO DAILY ##0 04/29/11 06/22/24 mcg (2,000 unit) capsule (Vitamin D3) multivitamin 1 cap PO DAILY ##0 04/29/11 06/22/24 zinc 10 mg tablet 30 mg PO DAILY ##0 04/29/11 06/22/24 zoledronic acid 5 mg/100 mL in 1 ea IV ONCE 09/22/22 06/22/24 mannitol 5 %-water intravenous piggybck (Reclast) Previous Rx's Medication Instructions Recorded estradiol 10 mcg vaginal tablet 10 mcg vaginal .COMPLEX Vaginal 09/22/22 (Vagifem) atrophy #24 tabs folic acid 1 mg tablet 1 mg PO DAILY #90 tabs 01/14/24 acetaminophen 500 mg capsule 1,000 mg (2 x 500 mg) PO Q6H PRN 06/08/24 pain #60 caps celecoxib 200 mg capsule (Celebrex) 200 mg PO BID #20 caps 06/08/24 docusate sodium 100 mg capsule 100 mg PO BID #30 caps 06/08/24 (Colace) tramadol 50 mg tablet 50 mg PO Q6H PRN pain #15 tabs 06/08/24 Allergies Allergy/AdvReac Type Severity Reaction Status Date / Time No Known Drug Allergies Allergy Verified 06/22/24 14:09 Review of Systems Review of Systems Narrative: Pertinent positive and negative findings as per HPI Patient History Medical History Abnormal mammogram of right breast PCT (porphyria cutanea tarda) History of colonic polyps Primary osteoarthritis involving multiple joints Polyneuropathy, unspecified MGUS (monoclonal gammopathy of unknown significance) Age-related osteoporosis without current pathological fracture Mixed hyperlipidemia Surgical History H/O vaginal surgery (~04/23/21) Family History Father Cancer Grandfather Heart disease Grandmother Stroke Mother Cancer Social History marital status: details: , one son and one daughter household members: spouse lives independently: Yes occupational status: previously employed Smoking Status: Never smoker alcohol intake: current substance use type: does not use Smoking Status: Never smoker alcohol intake frequency: holidays/special occasions only Substance Use Type: does not use Exam Initial Vital Signs Initial Vital Signs: Vital Signs Temperature 98.5 F 09/18/24 15:02 Pulse Rate 87 09/18/24 15:02 Respiratory Rate 20 09/18/24 15:02 Blood Pressure 132/80 09/18/24 15:02 Pulse Oximetry 100 09/18/24 15:02 Oxygen Delivery Method Room Air 09/18/24 15:02 General: Healthy appearing, in no acute distress. Able to give a complete and coherent history. Well-nourished well-developed HEENT: Moist mucous membranes, normal sclera with reactive pupils, Neck: No JVD, supple Respiratory: Lungs are clear to auscultation, no wheezing no rales no rhonchi. Full and symmetrical air movement Cardiac: Tachycardic but no murmurs Abdomen: Soft, nontender, good bowel tones, no flank pain Skin: Warm and dry, no rashes Neurologic: Grossly neurologically intact with no obvious asymmetries or abnormalities Extremities: No trauma, no edema Psych: Cooperative, appropriate insight and affect Course Orders Ordered: ED Orders 09/18/24 15:17 XR chest 1V Stat EKG-12 Lead Stat 09/18/24 15:26 Complete Blood Count AUTO DIFF Stat Comprehensive Metabolic Panel Stat D Dimer Stat Lipase Stat Magnesium Stat NT-proBNP (BNP-Adult 18+) Stat PTT Partial Thromboplastin [place] Stat Prothrombin Time INR Stat TSH w/ Reflex to FT4 Stat Troponin & CK Cardiac Panel Stat 09/18/24 16:01 CT angio chest PE protocol Stat Discontinued Medications Aspirin (Aspirin 81 Mg Chew Tab) 324 mg PO NOW ONE Stop: 09/18/24 15:17 Last Admin: 09/18/24 16:09 Dose: Not Given Documented By: EDUARDO Sodium Chloride (Normal Saline 0.9%) 1,000 mls @ 1,000 mls/hr IV BOLUS ONE Stop: 09/18/24 16:34 Last Infusion: 09/18/24 17:00 Dose: Infused Documented By: Admin: 09/18/24 15:41 Dose: 1,000 mls/hr Documented By: EDUARDO Vital Signs Vital signs: Vital Signs - 8 hr 09/18/24 15:02 09/18/24 15:32 09/18/24 16:00 Temperature 98.5 F Pulse Rate 87 95 H Respiratory Rate 20 22 Blood Pressure 132/80 123/67 Pulse Oximetry 100 100 Oxygen Delivery Method Room Air 09/18/24 16:00 09/18/24 16:30 Temperature Pulse Rate 78 72 Respiratory Rate 18 12 Blood Pressure Pulse Oximetry 95 99 Oxygen Delivery Method MDM - Arrhythmia/Palpitations Lab Data 09/18/24 15:26 09/18/24 15:26 Labs: Lab Results 09/18/24 Range/Units 15:26 WBC 8.9 (4.5-11.0) X10^3/uL RBC 4.63 (4.0-5.2) X10^6/uL Hgb 14.0 (12.0-16.0) g/dL Hct 42.2 (36-46) % MCV 91.2 (80-100) fL MCH 30.2 (26-34) PG MCHC 33.1 (30-36) % RDW 13.2 (11.6-14.8) % Plt Count 162 (150-400) X10^3/uL Neut % (Auto) Not Reportable Lymph % (Auto) Not Reportable [place] % (Auto) Not Reportable Eos % (Auto) Not Reportable Baso % (Auto) Not Reportable Lymph # (Auto) Not Reportable [place] # (Auto) Not Reportable Baso # (Auto) Not Reportable Total Counted 100 Seg Neutrophils % 79.0 H (38-70) % Band Neutrophils % 6.0 (3-7) % Lymphocytes % (Manual) 14.0 L (25-45) % Atypical Lymphs % 1.0 H ( - 0) % Neutrophils # (Manual) 7565 H (2588-5907) /uL [place] Cells 1+ H RBC Morphology Normal morphology PT 11.7 (9.4-12.5) SECONDS INR 1.0 (0.9-1.3) APTT 29 (25.1-36.5) SECONDS D-Dimer 1376 H (<500) ng/ml Sodium 139 (137-145) mmol/L Potassium 3.7 (3.4-5.1) mmol/L Chloride 105 (98-107) mmol/L Carbon Dioxide 27 (22-32) mmol/L BUN 20 H (7-17) mg/dL Creatinine 0.73 (0.52-1.04) mg/dL Estimated GFR > 60 (>60) mL/min BUN/Creatinine Ratio 27.4 H (6-22) Glucose 97 (80-110) mg/dL Calcium 9.2 (8.4-10.2) mg/dL Magnesium 1.9 (1.6-2.3) mg/dL Total Bilirubin 0.8 (0.2-1.3) mg/dL AST 58 H (14-36) IU/L ALT 33 (<35) IU/L Alkaline Phosphatase 45 (38-126) U/L Total Creatine Kinase 85 (30-135) U/L Troponin I < 0.012 (0.01-0.034) ng/mL NT-Pro-B Natriuret Pep 120 (<125) pg/mL Total Protein 7.2 (6.3-8.2) g/dL Albumin 4.4 (3.5-5.0) g/dL Globulin 2.8 (1.7-4.1) g/dL Albumin/Globulin Ratio 1.6 (1.0-2.8) Lipase 236 (23-300) U/L TSH 1.87 (0.47-4.68) uIU/mL Imaging Data CT scan - chest: Radiologist's Impresson: PROCEDURE: CT ANGIO CHEST PE PROTOCOL INDICATIONS: Dyspnea, tachy, elevated D-dimer, post 1st chemo breast ca TECHNIQUE: After the administration of intravenous contrast, 2 mm thick sections acquired from the pulmonary apices to the posterior costophrenic angles. 3-dimensional maximum intensity projection (MIP) coronal and sagittal reformats were then acquired through the thorax. For radiation dose reduction, the following was used: automated exposure control, adjustment of mA and/or kV according to patient size. COMPARISON: None. FINDINGS: Image quality: Diagnostic. Pulmonary arteries: Pulmonary arteries are normal in size, and demonstrate no intraluminal filling defects to suggest central pulmonary embolism. Lower Neck: No significant abnormality is seen. Thyroid: Prior right hemithyroidectomy can be seen. Axillae: No enlarged lymph nodes. Right axillary clips are seen. Chest Wall: Right breast postoperative change can be seen, with a tissue custom motorcycle painter. A left-sided chest port is seen, with the tip within the right atrium. Bones: Age-appropriate bony degenerative changes are seen. Accentuated thoracic kyphosis is seen. Lungs and Pleura: No pneumothorax or pleural effusions. No consolidation or suspicious nodules. Heart: Heart size is normal. No pericardial effusion. Thoracic Vessels: No aortic aneurysm. Mediastinum and Alejandra: No enlarged lymph nodes. Esophagus: No wall thickening. No hiatal hernia. Upper Abdomen: Visualized upper abdomen solid organs and bowel loops appear normal. IMPRESSION: No pulmonary embolus. No acute cardiopulmonary process. Additional findings: Prior right hemithyroidectomy Right axillary clips Right breast tissue custom motorcycle painter Left-sided chest port Dictated by: Lyle Crowder M.D. on 09/18/2024 at 15:28 MDM Narrative Medical decision making narrative: CC: Tachycardia, dyspnea Complicating co-morbidities: 1st dose of chemotherapy for breast cancer earlier this week recent left chest wall port placement Data collected from: patient, spouse Medical records reviewed: Surgical notes reviewed Differential considered: PE, pneumothorax, adverse reaction to chemo, acute coronary syndrome Exam documented above, pertinent findings include: Exam is fairly benign. Tachycardic, no murmurs no rales or rhonchi Lab Test results independently reviewed as above. Pertinent findings: CBC is unremarkable Chemistries are reassuring. AST is slightly increased at 58 other liver studies are unremarkable Troponin is undetectable ProBNP is appropriate D-dimer is elevated at 1376, PE study is ordered Independently reviewed EKG: Sinus rhythm, PACs and PVCs ap preciated no acute ischemic changes, she does not have a right heart strain pattern Imaging studies independently reviewed: Chest x-ray shows no acute findings CT angiogram does not show pulmonary emboli or other acute abnormalities Treatments: L of saline Discussion: 64-year-old woman who just underwent her 1st chemotherapy with granulocyte stimulating injection post chemotherapy earlier this week. Complaining of some tremulousness to palpitations. EKG shows frequent PACs PVCs. D-dimer was elevated and a CT scan of the chest does not confirm PE or other significant abnormality. Labs are actually fairly reassuring, there was no suggestion of infection, acute coronary syndrome or congestive heart failure. At this point with all of the life-threatening culprits ruled out and feeling significantly better after a L of fluid I believe she is safe for discharge home. We will ask her to talk with her oncologist tomorrow to let them know she was in the emergency department we did do additional studies, she felt better with fluids into see if this is a side effect sometimes encountered with her current chemotherapy. At this time there was no indication for hospitalization or additional imaging studies and she is safe for discharge Discharge Plan Departure Patient Disposition: Home Clinical Impression: Heart palpitations Activity Restrictions/Additional Instructions: Thank you for coming in today I am not quite sure how to describe the sensation that you are having which is why we did a fairly broad workup to prove that it was not heart attack, congestive heart failure, liver failure, kidney failure, significant electrolyte abnormality. You are D-dimer, the breakdown product of blood clots, was slightly elevated. We did a CT scan of your chest that did not suggest pulmonary emboli or other significant abnormalities within your chest. You said that you are feeling better after receiving a L of IV fluids. I would recommend that you call your oncologist tomorrow and let them know that you are in the emergency department, you felt better after fluids, the workup was essentially benign. See if this is an anticipated side effect of your chemotherapy in follow up blood booster injection or if this is something that needs further attention If you find that you are getting worse or develop any new symptoms, please feel free to return to the emergency department for further evaluation. Good luck with the rest of your chemotherapy journey! Prescriptions: No Action multivitamin Capsule 1 cap PO DAILY Qty: 0 zinc 10 mg Tablet 30 mg PO DAILY Qty: 0 calcium citrate 200 mg (950 mg) Tablet 200 mg PO DAILY Qty: 0 cholecalciferol (vitamin D3) [Vitamin D3] 50 mcg (2,000 unit) Capsule 50 mcg PO DAILY Qty: 0 folic acid 1 mg tablet 1 mg PO DAILY Qty: 90 3RF zoledronic [id number] [Reclast] 5 mg/100 mL piggyback 1 ea IV ONCE Rx Instructions: Once yearly estradiol [Vagifem] 10 mcg tablet 10 mcg Vaginal .COMPLEX Qty: 24 3RF Rx Instructions: Placed in vagina twice a week celecoxib [Celebrex] 200 mg capsule 200 mg PO BID Qty: 20 0RF tramadol 50 mg tablet 50 mg PO Q6H PRN (Reason: pain) Qty: 15 0RF docusate sodium [Colace] 100 mg capsule 100 mg PO BID Qty: 30 0RF acetaminophen 500 mg capsule 1,000 mg PO Q6H PRN (Reason: pain) Qty: 60 0RF Referrals: Pepe Palencia MD [Primary Care Provider] - Stand Alone Forms: Patient Portal/API/Survey
[2024-09-18 15:32] VITALS: PULSE 95; RESP 22; O2SAT 100
[2024-09-18 15:40] LABS: Prothrombin Time 11.7 SECONDS (9.4-12.5)
[2024-09-18] MEDS: SODIUM CHLORIDE 0.9% 1,000 ML 1000 ML IV (15:41)
[2024-09-18 15:43] LABS: PTT Partial Thromboplastin Tim 29 SECONDS (25.1-36.5)
[2024-09-18 15:44] LABS: Alanine Aminotransferase 33 IU/L (<35); Albumin 4.4 g/dL (3.5-5.0); Albumin Globulin Ratio 1.6 (1.0-2.8); Alkaline Phosphatase 45 U/L (38-126); BUN Creatinine Ratio 27.4 (6-22); Bilirubin Total 0.8 mg/dL (0.2-1.3); Blood Urea Nitrogen 20 mg/dL (7-17); Calcium 9.2 mg/dL (8.4-10.2); Carbon Dioxide 27 mmol/L (22-32); Chloride 105 mmol/L (98-107); Creatine Kinase 85 U/L (30-135); Estimated Glomerular Filt Rate > 60 mL/min (>60); Globulin 2.8 g/dL (1.7-4.1); Glucose 97 mg/dL (80-110); Hematocrit 42.2 % (36-46); Lipase 236 U/L (23-300); Magnesium 1.9 mg/dL (1.6-2.3); Mean Corpuscular HGB Conc 33.1 % (30-36); Mean Corpuscular Hemoglobin 30.2 PG (26-34); Mean Corpuscular Volume 91.2 fL (80-100); Platelet Count 162 X10^3/uL (150-400); Red Blood Cell Count 4.63 X10^6/uL (4.0-5.2); Red Cell Distribution Width 13.2 % (11.6-14.8); Sodium 139 mmol/L (137-145); Total Protein 7.2 g/dL (6.3-8.2); White Blood Cell Count 8.9 X10^3/uL (4.5-11.0)
[2024-09-18 15:46] LABS: Aspartate Aminotransferase 58 IU/L (14-36); HEMOLYSIS 54 (0-50); Potassium 3.7 mmol/L (3.4-5.1)
[2024-09-18 15:47] LABS: Add Manual Diff / Slide Review YES
[2024-09-18 15:49] LABS: D Dimer 1376 ng/ml (<500)
[2024-09-18 15:56] LABS: NT-proBNP (BNP-Adult 18+) 120 pg/mL (<125); Troponin I < 0.012 ng/mL (0.01-0.034)
[2024-09-18 16:00] VITALS: BP 123/67; PULSE 78; RESP 18; O2SAT 95
--- NOTE | 2024-09-18 16:01 | DI.CT.S_ITS ---
PROCEDURE: CT ANGIO CHEST PE PROTOCOL INDICATIONS: Dyspnea, tachy, elevated D-dimer, post 1st chemo breast ca TECHNIQUE: After the administration of intravenous contrast, 2 mm thick sections acquired from the pulmonary apices to the posterior costophrenic angles. 3-dimensional maximum intensity projection (MIP) coronal and sagittal reformats were then acquired through the thorax. For radiation dose reduction, the following was used: automated exposure control, adjustment of mA and/or kV according to patient size. COMPARISON: None. FINDINGS: Image quality: Diagnostic. Pulmonary arteries: Pulmonary arteries are normal in size, and demonstrate no intraluminal filling defects to suggest central pulmonary embolism. Lower Neck: No significant abnormality is seen. Thyroid: Prior right hemithyroidectomy can be seen. Axillae: No enlarged lymph nodes. Right axillary clips are seen. Chest Wall: Right breast postoperative change can be seen, with a tissue neckties painter. A left-sided chest port is seen, with the tip within the right atrium. Bones: Age-appropriate bony degenerative changes are seen. Accentuated thoracic kyphosis is seen. Lungs and Pleura: No pneumothorax or pleural effusions. No consolidation or suspicious nodules. Heart: Heart size is normal. No pericardial effusion. Thoracic Vessels: No aortic aneurysm. Mediastinum and [place]: No enlarged lymph nodes. Esophagus: No wall thickening. No hiatal hernia. Upper Abdomen: Visualized upper abdomen solid organs and bowel loops appear normal. IMPRESSION: No pulmonary embolus. No acute cardiopulmonary process. Additional findings: Prior right hemithyroidectomy Right axillary clips Right breast tissue neckties painter Left-sided chest port Dictated by: Lyle Crowder M.D. on 09/18/2024 at 15:28 Approved by: Lyle Crowder M.D. on 09/18/2024 at 15:30
[2024-09-18 16:14] LABS: Neutrophils Absolute Manual 7565 /uL (3000-5900); RBC Morphology Normal Morphology; Smudge Cells 1+; Total Cells Counted 100
[2024-09-18 16:30] VITALS: PULSE 72; RESP 12; O2SAT 99
[2024-09-18 16:42] LABS: TSH w/ Reflex to FT4 1.87 uIU/mL (0.47-4.68)
[2024-09-18 19:06] VITALS: BP 126/70; PULSE 84; RESP 16; O2SAT 99
== END 2024-09-18 19:07 | disposition home or self-care (01) ==
PROVIDERS: Emergency Provider Emergency Medicine; PCP Internal Medicine
DX: R00.2 Palpitations (principal); R06.02 Shortness of breath; C50.912 Malignant neoplasm of unspecified site of left female breast
CPT/HCPCS: 36415; 71045; 71275; 80053; 82550; 83690; 83735; 83880; 84443; 84484; 85007; 85025; 85379; 85610; 85730; 93005; 96360; 99284; Q9967

== ENCOUNTER → 2024-10-14 12:51 | Outpatient (CLI) | payer MEDICARE, OTHER, SELFPAY ==
[2021-04-23 15:58] VITALS: BMI 24.1
== END ==
PROVIDERS: PCP Internal Medicine; Visit Provider Student in an Organized Health Care Education/Training Program
DX: R30.0 Dysuria (principal)
CPT/HCPCS: 87077; 87086

== ENCOUNTER → 2024-10-25 09:59 | Outpatient (CLI) | payer MEDICARE, OTHER, SELFPAY ==
[2021-04-23 15:58] VITALS: BMI 24.1
[2024-10-25 10:47] LABS: Add Manual Diff / Slide Review NO; Basophils Absolute Auto 100 /uL (0-100); Basophils Percent Auto 1.4 % (0-2); Eosinophils Absolute Auto 0 /uL (0-450); Eosinophils Percent Auto 0.1 % (2-4); Hematocrit 34.8 % (36-46); Hemoglobin 11.7 g/dL (12.0-16.0); Lymphocytes Absolute Auto 1100 /uL (1100-4500); Lymphocytes Percent Auto 17.3 % (25-40); Mean Corpuscular HGB Conc 33.5 % (30-36); Mean Corpuscular Hemoglobin 30.8 PG (26-34); Monocytes Absolute Auto 800 /uL (0-900); Monocytes Percent Auto 12.1 % (3-14); Neutrophils Absolute Auto 4400 /uL (1500-7000); Neutrophils Percent Auto 69.1 % (50-75); Platelet Count 282 X10^3/uL (150-400); Red Blood Cell Count 3.78 X10^6/uL (4.0-5.2); Red Cell Distribution Width 14.6 % (11.6-14.8); White Blood Cell Count 6.3 X10^3/uL (4.5-11.0)
[2024-10-25 11:20] LABS: Alanine Aminotransferase 25 IU/L (<35); Albumin 3.5 g/dL (3.5-5.0); Albumin Globulin Ratio 1.7 (1.0-2.8); Alkaline Phosphatase 54 U/L (38-126); Aspartate Aminotransferase 36 IU/L (14-36); BUN Creatinine Ratio 26.5 (6-22); Bilirubin Total 0.5 mg/dL (0.2-1.3); Bilirubin Unconjugated 0.3 mg/dL (0.0-1.1); Blood Urea Nitrogen 18 mg/dL (7-17); Calcium 9.1 mg/dL (8.4-10.2); Carbon Dioxide 26 mmol/L (22-32); Chloride 107 mmol/L (98-107); Estimated Glomerular Filt Rate > 60 mL/min (>60); Globulin 2.1 g/dL (1.7-4.1); Glucose 85 mg/dL (80-110); HEMOLYSIS < 15 (0-50); Potassium 4.2 mmol/L (3.4-5.1); Sodium 138 mmol/L (137-145); Total Protein 5.6 g/dL (6.3-8.2)
== END ==
LOC: LAB 10:01
PROVIDERS: PCP Internal Medicine; Referring Provider Nurse Practitioner; Visit Provider Nurse Practitioner
DX: C50.911 Malignant neoplasm of unspecified site of right female breast (principal)
CPT/HCPCS: 36415; 80048; 80076; 85025

== ENCOUNTER → 2024-11-02 09:39 | Outpatient (CLI) | payer MEDICARE, OTHER, SELFPAY ==
[2021-04-23 15:58] VITALS: BMI 24.1
[2024-11-02 11:04] LABS: Add Manual Diff / Slide Review NO; Basophils Absolute Auto 0 /uL (0-100); Basophils Percent Auto 0.5 % (0-2); Eosinophils Absolute Auto 0 /uL (0-450); Eosinophils Percent Auto 0.8 % (2-4); Hematocrit 34.5 % (36-46); Hemoglobin 11.7 g/dL (12.0-16.0); Lymphocytes Absolute Auto 400 /uL (1100-4500); Lymphocytes Percent Auto 7.1 % (25-40); Mean Corpuscular HGB Conc 33.9 % (30-36); Mean Corpuscular Volume 91.5 fL (80-100); Monocytes Absolute Auto 100 /uL (0-900); Monocytes Percent Auto 1.4 % (3-14); Neutrophils Absolute Auto 4500 /uL (1500-7000); Neutrophils Percent Auto 90.2 % (50-75); Platelet Count 270 X10^3/uL (150-400); Red Blood Cell Count 3.77 X10^6/uL (4.0-5.2); Red Cell Distribution Width 14.6 % (11.6-14.8)
== END ==
LOC: LAB 09:42
PROVIDERS: PCP Internal Medicine
DX: C50.911 Malignant neoplasm of unspecified site of right female breast (principal)
CPT/HCPCS: 36415; 85025

== ENCOUNTER → 2024-11-09 10:35 | Outpatient (CLI) | payer MEDICARE, OTHER, SELFPAY ==
[2021-04-23 15:58] VITALS: BMI 24.1
[2024-11-09 11:12] LABS: Add Manual Diff / Slide Review NO; Basophils Absolute Auto 0 /uL (0-100); Basophils Percent Auto 0.8 % (0-2); Eosinophils Absolute Auto 0 /uL (0-450); Eosinophils Percent Auto 0.8 % (2-4); Hematocrit 34.8 % (36-46); Hemoglobin 11.7 g/dL (12.0-16.0); Lymphocytes Absolute Auto 200 /uL (1100-4500); Lymphocytes Percent Auto 10.9 % (25-40); Mean Corpuscular HGB Conc 33.5 % (30-36); Mean Corpuscular Hemoglobin 31.1 PG (26-34); Monocytes Absolute Auto 100 /uL (0-900); Monocytes Percent Auto 3.2 % (3-14); Neutrophils Absolute Auto 1800 /uL (1500-7000); Neutrophils Percent Auto 84.3 % (50-75); Platelet Count 274 X10^3/uL (150-400); Red Blood Cell Count 3.74 X10^6/uL (4.0-5.2); Red Cell Distribution Width 14.5 % (11.6-14.8); White Blood Cell Count 2.1 X10^3/uL (4.5-11.0)
== END ==
PROVIDERS: PCP Internal Medicine; Referring Provider Internal Medicine; Visit Provider Internal Medicine
DX: C50.911 Malignant neoplasm of unspecified site of right female breast (principal)
CPT/HCPCS: 36415; 85025

== ENCOUNTER → 2024-11-16 09:53 | Outpatient (CLI) | payer MEDICARE, OTHER, SELFPAY ==
[2021-04-23 15:58] VITALS: BMI 24.1
[2024-11-16 10:38] LABS: Add Manual Diff / Slide Review NO; Basophils Absolute Auto 100 /uL (0-100); Basophils Percent Auto 2.7 % (0-2); Eosinophils Absolute Auto 100 /uL (0-450); Eosinophils Percent Auto 2.7 % (2-4); Hematocrit 35.4 % (36-46); Lymphocytes Absolute Auto 600 /uL (1100-4500); Mean Corpuscular HGB Conc 33.9 % (30-36); Mean Corpuscular Hemoglobin 31.5 PG (26-34); Mean Corpuscular Volume 93.2 fL (80-100); Monocytes Absolute Auto 300 /uL (0-900); Monocytes Percent Auto 16.2 % (3-14); Neutrophils Absolute Auto 1000 /uL (1500-7000); Neutrophils Percent Auto 50.4 % (50-75); Platelet Count 279 X10^3/uL (150-400); Red Cell Distribution Width 15.4 % (11.6-14.8)
[2024-11-16 10:52] LABS: Alanine Aminotransferase 17 IU/L (<35); Albumin 3.6 g/dL (3.5-5.0); Albumin Globulin Ratio 1.6 (1.0-2.8); Alkaline Phosphatase 42 U/L (38-126); Aspartate Aminotransferase 25 IU/L (14-36); BUN Creatinine Ratio 24.6 (6-22); Bilirubin Total 0.5 mg/dL (0.2-1.3); Bilirubin Unconjugated 0.3 mg/dL (0.0-1.1); Blood Urea Nitrogen 17 mg/dL (7-17); Calcium 9.1 mg/dL (8.4-10.2); Carbon Dioxide 24 mmol/L (22-32); Chloride 107 mmol/L (98-107); Estimated Glomerular Filt Rate > 60 mL/min (>60); Globulin 2.2 g/dL (1.7-4.1); Glucose 79 mg/dL (80-110); HEMOLYSIS < 15 (0-50); Lactate Dehydrogenase 210 U/L (120-246); Potassium 4.8 mmol/L (3.4-5.1); Sodium 135 mmol/L (137-145); Total Protein 5.8 g/dL (6.3-8.2)
== END ==
PROVIDERS: PCP Internal Medicine; Referring Provider Nurse Practitioner; Visit Provider Nurse Practitioner
DX: C50.911 Malignant neoplasm of unspecified site of right female breast (principal)
CPT/HCPCS: 36415; 80048; 80076; 83615; 85025

== ENCOUNTER → 2024-11-23 10:16 | Outpatient (CLI) | payer MEDICARE, OTHER, SELFPAY ==
[2021-04-23 15:58] VITALS: BMI 24.1
[2024-11-23 10:57] LABS: Add Manual Diff / Slide Review NO; Basophils Absolute Auto 100 /uL (0-100); Basophils Percent Auto 2.6 % (0-2); Eosinophils Absolute Auto 100 /uL (0-450); Eosinophils Percent Auto 2.3 % (2-4); Hematocrit 33.6 % (36-46); Hemoglobin 11.4 g/dL (12.0-16.0); Lymphocytes Absolute Auto 400 /uL (1100-4500); Mean Corpuscular HGB Conc 34.1 % (30-36); Mean Corpuscular Hemoglobin 31.7 PG (26-34); Monocytes Absolute Auto 300 /uL (0-900); Neutrophils Absolute Auto 1800 /uL (1500-7000); Neutrophils Percent Auto 68.1 % (50-75); Platelet Count 266 X10^3/uL (150-400); Red Blood Cell Count 3.61 X10^6/uL (4.0-5.2); Red Cell Distribution Width 14.9 % (11.6-14.8); White Blood Cell Count 2.6 X10^3/uL (4.5-11.0)
== END ==
PROVIDERS: PCP Internal Medicine; Referring Provider Nurse Practitioner; Visit Provider Nurse Practitioner
DX: C50.911 Malignant neoplasm of unspecified site of right female breast (principal)
CPT/HCPCS: 36415; 85025

== ENCOUNTER → 2024-11-30 09:53 | Outpatient (CLI) | payer MEDICARE, OTHER, SELFPAY ==
[2021-04-23 15:58] VITALS: BMI 24.1
[2024-11-30 10:12] LABS: Add Manual Diff / Slide Review NO; Basophils Absolute Auto 0 /uL (0-100); Basophils Percent Auto 1.5 % (0-2); Eosinophils Absolute Auto 0 /uL (0-450); Eosinophils Percent Auto 1.3 % (2-4); Hematocrit 34.1 % (36-46); Hemoglobin 11.6 g/dL (12.0-16.0); Lymphocytes Absolute Auto 300 /uL (1100-4500); Lymphocytes Percent Auto 9.2 % (25-40); Mean Corpuscular Hemoglobin 31.6 PG (26-34); Monocytes Absolute Auto 100 /uL (0-900); Monocytes Percent Auto 4.5 % (3-14); Neutrophils Absolute Auto 2500 /uL (1500-7000); Neutrophils Percent Auto 83.5 % (50-75); Platelet Count 337 X10^3/uL (150-400); Red Blood Cell Count 3.66 X10^6/uL (4.0-5.2); Red Cell Distribution Width 15.1 % (11.6-14.8)
== END ==
PROVIDERS: PCP Internal Medicine; Referring Provider Nurse Practitioner; Visit Provider Nurse Practitioner
DX: C50.911 Malignant neoplasm of unspecified site of right female breast (principal)
CPT/HCPCS: 36415; 85025

== ENCOUNTER → 2025-01-02 11:47 | Outpatient (CLI) | payer MEDICARE, OTHER, SELFPAY ==
[2021-04-23 15:58] VITALS: BMI 24.1
[2025-01-02 12:17] LABS: Add Manual Diff / Slide Review NO; Basophils Absolute Auto 100 /uL (0-100); Basophils Percent Auto 1.4 % (0-2); Eosinophils Absolute Auto 100 /uL (0-450); Hematocrit 34.9 % (36-46); Hemoglobin 11.9 g/dL (12.0-16.0); Lymphocytes Absolute Auto 1300 /uL (1100-4500); Lymphocytes Percent Auto 29.2 % (25-40); Mean Corpuscular HGB Conc 33.9 % (30-36); Mean Corpuscular Hemoglobin 31.4 PG (26-34); Mean Corpuscular Volume 92.5 fL (80-100); Monocytes Absolute Auto 400 /uL (0-900); Monocytes Percent Auto 10.1 % (3-14); Neutrophils Absolute Auto 2500 /uL (1500-7000); Neutrophils Percent Auto 57.3 % (50-75); Platelet Count 249 X10^3/uL (150-400); Red Blood Cell Count 3.78 X10^6/uL (4.0-5.2); Red Cell Distribution Width 14.5 % (11.6-14.8); White Blood Cell Count 4.4 X10^3/uL (4.5-11.0)
== END ==
LOC: LAB 11:48
PROVIDERS: PCP Internal Medicine; Referring Provider Nurse Practitioner; Visit Provider Nurse Practitioner
DX: C50.911 Malignant neoplasm of unspecified site of right female breast (principal)
CPT/HCPCS: 36415; 85025

== ENCOUNTER → 2025-05-03 10:10 | Outpatient (CLI) | payer MEDICARE, OTHER, SELFPAY ==
[2021-04-23 15:58] VITALS: BMI 24.1
[2025-05-03 11:07] LABS: Hemoglobin A1C% w Est Avg Glu 5.4 % (4.0-6.0)
[2025-05-03 11:31] LABS: Cholesterol 206 mg/dL (140-199); HDL Cholesterol 77 mg/dL (40-60); Triglycerides 66 mg/dL (35-150)
[2025-05-05 10:36] LABS: Albumin 3.7 g/dL (2.9-4.4); Alpha-1-Globulin 0.3 g/dL (0.0-0.4); Alpha-2-Globulin 0.7 g/dL (0.4-1.0); Gamma Globulin 0.8 g/dL (0.4-1.8)
== END ==
PROVIDERS: PCP Internal Medicine; Referring Provider Internal Medicine; Visit Provider Internal Medicine
DX: R73.01 Impaired fasting glucose (principal); E78.2 Mixed hyperlipidemia; D47.2 Monoclonal gammopathy
CPT/HCPCS: 36415; 80061; 83036; 84155; 84165

== ENCOUNTER → 2025-09-06 10:48 | Outpatient (CLI) | payer MEDICARE, OTHER, SELFPAY ==
[2021-04-23 15:58] VITALS: BMI 24.1
[2025-09-06 11:10] LABS: Add Manual Diff / Slide Review NO; Hematocrit 34.0 % (36-46); Hemoglobin 11.8 g/dL (12.0-16.0); Lymphocytes Absolute Auto 1000 /uL (1100-4500); Mean Corpuscular HGB Conc 34.6 % (30-36); Mean Corpuscular Hemoglobin 33.9 PG (26-34); Mean Corpuscular Volume 97.8 fL (80-100); Platelet Count 253 X10^3/uL (150-400)
== END ==
PROVIDERS: PCP Internal Medicine; Referring Provider Internal Medicine; Visit Provider Internal Medicine
DX: C50.911 Malignant neoplasm of unspecified site of right female breast (principal)
CPT/HCPCS: 36415; 85025

== ENCOUNTER → 2025-09-28 11:59 | Outpatient (CLI) | payer MEDICARE, OTHER, SELFPAY ==
[2021-04-23 15:58] VITALS: BMI 24.1
[2025-09-28 12:47] LABS: Add Manual Diff / Slide Review NO; Hematocrit 36.6 % (36-46); Hemoglobin 12.7 g/dL (12.0-16.0); Lymphocytes Absolute Auto 1100 /uL (1100-4500); Mean Corpuscular HGB Conc 34.7 % (30-36); Mean Corpuscular Hemoglobin 33.5 PG (26-34); Mean Corpuscular Volume 96.6 fL (80-100); Platelet Count 260 X10^3/uL (150-400)
[2025-09-28 13:03] LABS: Alanine Aminotransferase 19 IU/L (<35); Albumin 4.1 g/dL (3.5-5.0); Albumin Globulin Ratio 1.6 (1.0-2.8); Alkaline Phosphatase 53 U/L (38-126); Blood Urea Nitrogen 19 mg/dL (7-17); Calcium 9.6 mg/dL (8.4-10.2); Carbon Dioxide 24 mmol/L (22-32); Chloride 108 mmol/L (98-107); Estimated Glomerular Filt Rate > 60 mL/min (>60); Globulin 2.5 g/dL (1.7-4.1); Glucose 90 mg/dL (70-99); HEMOLYSIS < 15 (0-50); Potassium 4.2 mmol/L (3.4-5.1); Sodium 140 mmol/L (137-145); Total Protein 6.6 g/dL (6.3-8.2)
== END ==
PROVIDERS: PCP Internal Medicine; Referring Provider Nurse Practitioner; Visit Provider Nurse Practitioner
DX: C50.911 Malignant neoplasm of unspecified site of right female breast (principal)
CPT/HCPCS: 36415; 80053; 85025